=== PATIENT | female | born 1975 | race Caucasian/White ===

== ENCOUNTER 2021-05-06 06:55 | Day surgery (SDC) | payer MEDICARE, OTHER ==
[~2021-05-06] VITALS: Ht 162.6 cm; Wt 74.1 kg
[~2021-05-06 06:55] MED LIST: CARBAMAZEPINE100 MG PO; CARBATROL100 MG PO; GUMMI BEAR MUL1 EACH PO; MULTIVITAM9 MG/15 M1 PO
--- NOTE | 2021-05-06 08:19 | NUR ---
MEDICATED IN ORDER TO FACILITATE CARE OF PATIENT. AFTER 10MG ORAL VERSED AND WAITING 15 MINUTES, THE PATIENT IS STILL NOT WILLING TO HAVE BLOOD PRESSRUE TAKEN. REPEAT DOSE GIVEN PER VERBAL ORDER.
--- NOTE | 2021-05-06 08:55 | NUR ---
PT NOW TOLERATES VITAL SIGNS AND CONSENTS TO IV WITH TWO NURSE ASSIST.
--- NOTE | 2021-05-06 12:03 | NUR ---
PT AND FAMILY UPDATED ON LENGTH OF DELAY PRIOR TO STARTING PROCEDURE IN OR
--- NOTE | 2021-05-06 13:42 | NUR ---
05/06/21 1342 Libby Monzon 1332 PT ARRIVED TO PACU ON 6L VIA MASK, JAW THUST USED TO MAINTAIN AIRWAY. SECOND RN AT BEDSIDE, RADHA CELAYA. PT NONAROUSABLE.
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
== END 2021-05-06 15:30 | disposition home or self-care (01) ==
LOC: DS 06:55 → OPS 06:55
PROVIDERS: ATTEND Surgery
PROC: 0D20XUZ Change Feeding Device in Upper Intestinal Tract, External Approach (ICD-10-PCS; principal; 2021-05-06 09:40)
DX: Z43.1 Encounter for attention to gastrostomy (principal); R29.818 Other symptoms and signs involving the nervous system; S06.300S Unspecified focal traumatic brain injury without loss of consciousness, sequela; G40.909 Epilepsy, unspecified, not intractable, without status epilepticus; Z88.8 Allergy status to other drugs, medicaments and biological substances; Z20.822 Contact with and (suspected) exposure to COVID-19
CPT/HCPCS: 36415; 80053; 80061; 80156; 82306; 84439; 84443; 84703; 85025; J2001; J2250; J2704; J7121; U0003

== ENCOUNTER 2023-01-02 08:41 | Day surgery (SDC) | payer MEDICARE, OTHER ==
[~2023-01-02] VITALS: Ht 162.6 cm; Wt 79.5 kg
--- NOTE | 2023-01-02 09:37 | NUR ---
PATIENT GIVEN ORAL VERSED PER TUBE. SOME LEAKAGE OF MEDICATION AROUND TUBE. FLUSHED WITH 5 ML OF TAP WATER. 3 RNs ASSISTED WITH HOLDING EXTREMITIES DURING VERSED ADMIN. MOTHER AT BEDSIDE. CALL LIGHT WITHIN REACH OF MOTHER.
[2023-01-02 10:16] LABS: BASOPHILS 1.1 % (0-2); EOSINOPHILS 3.7 % (0-6); HEMATOCRIT 39.5 % (35.0-50.0); LYMPHOCYTES 27.8 % (24-44); MCH 29.3 (27-36); MONOCYTES 8.3 % (0-12); NEUTROPHILS 59.1 % (39-80); PLATELET COUNT 276 K/uL (140-440); RBC 4.44 M/ul (4.3-5.7)
[2023-01-02 10:34] LABS: ALBUMIN/GLOBULIN RATIO 0.45 (1.1-2.4); ANION GAP 12.5 (7-21); BILIRUBIN, TOTAL 0.1 ng/dL (0.2-1.0); BUN/CREATININE RATIO 18.64 (6.0-28.6); CALCIUM 8.1 mg/dL (8.5-10.1); CREATININE, SERUM 0.59 mg/dL (0.55-1.02); POTASSIUM 3.5 mmol/L (3.5-5.1); PROTEIN, TOTAL 6.4 g/dL (6.4-8.2)
--- NOTE | 2023-01-02 11:21 | NUR ---
01/02/23 1121 Betty Alejandre 1115: PATIENT BEGINS TO COUGH. HOB ELEVATED TO 90. PATIENT HAS SCANT AMOUNT OF DE [place] O SMELLING EMESIS. PATIENT AIRWAY IS DEEP SUCTIONED. MASK IS REMOVED AND PATIENT MAINTAINS OXYGEN SATURATION AT 98% - 100%
[2023-01-02 11:41] VITALS: BP 109/52
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
== END 2023-01-02 11:55 | disposition home or self-care (01) ==
LOC: DS 08:41
PROVIDERS: ATTEND Surgery
PROC: 0D20XUZ Change Feeding Device in Upper Intestinal Tract, External Approach (ICD-10-PCS; principal; 2023-01-02 11:00)
DX: Z43.1 Encounter for attention to gastrostomy (principal)
CPT/HCPCS: 00790; 36415; 80053; 84703; 85025; J1100; J1885; J2250; J2405; J2704; J2765; J3010; J7121

== ENCOUNTER 2023-03-17 01:01 | Emergency (ER) | payer MEDICARE, OTHER ==
[~2023-03-17] VITALS: Ht 162.6 cm; Wt 75.0 kg
[2023-03-17 01:29] LABS: BASOPHILS 0.6 % (0-2); EOSINOPHILS 0.3 % (0-6); HEMATOCRIT 40.8 % (35.0-50.0); HEMOGLOBIN 13.4 g/dL (12.0-18.0); LYMPHOCYTES 8.1 % (24-44); MCH 28.9 (27-36); MCHC 32.8 g/dl (30-36); MCV 88.4 fl (81-99); PLATELET COUNT 315 K/uL (140-440); RBC 4.62 M/ul (4.3-5.7); RDW 14.3 (10.5-15.0)
[2023-03-17 01:45] LABS: ALBUMIN 3.5 g/dL (3.4-5.0); ALBUMIN/GLOBULIN RATIO 0.9 (1.1-2.4); BILIRUBIN, TOTAL 0.2 ng/dL (0.2-1.0); BUN/CREATININE RATIO 18.88 (6.0-28.6); CALCIUM 8.3 mg/dL (8.5-10.1); CREATININE, SERUM 0.9 mg/dL (0.55-1.02); PROTEIN, TOTAL 7.4 g/dL (6.4-8.2)
[2023-03-17] MEDS ORDERED: PROTONIX40 M1 PT (01:52)
[2023-03-17 02:20] VITALS: BP 117/61
== END 2023-03-17 02:20 | disposition home or self-care (01) ==
LOC: ED 01:01
PROVIDERS: Family Medicine
DX: K92.0 Hematemesis (principal); Z93.1 Gastrostomy status; Z88.8 Allergy status to other drugs, medicaments and biological substances; Z79.899 Other long term (current) drug therapy; Z87.820 Personal history of traumatic brain injury
CPT/HCPCS: 36415; 80053; 85025; 96374; 99284-25; A9270; C9113

== ENCOUNTER 2023-07-02 09:25 | Inpatient (IN) | payer MEDICARE, OTHER ==
[~2023-07-02] VITALS: Ht 162.6 cm; Wt 70.0 kg
[~2023-07-02 09:25] MED LIST changes: +PROTONIX40 M1 PT
[2023-07-02] MEDS ORDERED: SODIUM CHLORIDE 0.9% 1,000 ML IV ONE (09:45)
[2023-07-02] MEDS ORDERED: ondansetron HCL 4 MG/2 ML VIAL IV ONE (09:45)
[2023-07-02 10:04] LABS: HEMATOCRIT 46.9 % (35.0-50.0); HEMOGLOBIN 15.7 g/dL (12.0-18.0); MCH 29.4 (27-36); MCHC 33.4 g/dl (30-36); MCV 88.1 fl (81-99); PLATELET COUNT 386 K/uL (140-440); RBC 5.33 M/ul (4.3-5.7); RDW 14.4 (10.5-15.0)
[2023-07-02 10:09] LABS: BILIRUBIN, URINE POSITIVE (negative); BLOOD/HGB, URINE TRACE-I (Negative); KETONE, URINE TRACE (Negative); LEUK ESTERASE, URINE NEGATIVE (negative); NITRITE, URINE NEGATIVE (negative); PH, URINE 5.5 (5-7)
[2023-07-02 10:21] LABS: ALBUMIN 3.8 g/dL (3.4-5.0); ALBUMIN/GLOBULIN RATIO 0.86 (1.1-2.4); ANION GAP 15.1 (7-21); BILIRUBIN, TOTAL 0.5 ng/dL (0.2-1.0); BUN/CREATININE RATIO 17.97 (6.0-28.6); CALCIUM 8.9 mg/dL (8.5-10.1); CREATININE, SERUM 0.89 mg/dL (0.55-1.02); POTASSIUM 4.1 mmol/L (3.5-5.1); PROTEIN, TOTAL 8.2 g/dL (6.4-8.2)
[2023-07-02 10:22] LABS: BACTERIA, URINE NONE SEEN /hpf (negative); CASTS, URINE NONE SEEN \\lpf; COLLECTION TYPE, URINE CATH; CRYSTALS, URINE NONE SEEN (0-1+); EPITHELIAL CELLS, URINE OCCASIONAL /lpf (0-1+); REFLEX CULTURE, URINE No (No)
[2023-07-02 10:25] LABS: BANDS, MANUAL DIFF 5; BASOPHILS, MANUAL DIFF 1; EOSINOPHILS, MANUAL DIFF 1; LYMPHOCYTES, MANUAL DIFF 6; MONOCYTES, MANUAL DIFF 8; NEUTROPHILS, MANUAL DIFF 79
[2023-07-02] MEDS ORDERED: MIDAZOLAM HCL 2 MG/2 ML VIAL IV ONE (10:45)
[2023-07-02] MEDS ORDERED: ACETAMINOPHEN 325 MG TAB PT PRN (11:45)
[2023-07-02] MEDS ORDERED: CEFTRIAXONE/SODIUM CHLORIDE 2 GM/100 ML PIGGYBACK IV ONE (11:45)
[2023-07-02] MEDS ORDERED: DEXTROSE 5% - LACTATED RINGERS 1,000 ML IV SCH (11:45)
[2023-07-02] MEDS ORDERED: HYDROmorphone HCL 1 MG/ML SYR IV PRN ×2 (11:45→17:15)
--- NOTE | 2023-07-02 12:05 | NUR ---
PT ARRIVED TO MED SURG UNIT VIA STRETCHER. HAND OFF REPORT RECEIVED FROM RADHA MUÑOZ. PT. AWAKE AND ALERT, TRANSFERED TO BED VIA DRAW SHEET, 3PA. PT. ARRIVED WITH MOTHER DEBBIE WHO IS AT BEDSIDE. MOTHER IS PT CAREGIVER. PT HAS COGNITIVE DEFECITS FROM TBI OVER 30 YEARS AGO. MOTHER ANSWERS QUESTIONS FOR PT BECAUSE PT IS NON VERBAL.
[2023-07-02 13:03] VITALS: BP 105/62
--- NOTE | 2023-07-02 13:29 | NUR ---
PT HAD AN EPISODE OF EMESIS. DR. MIXON NOTIFIED. PT CLEANED UP WITH NEW GOWN AND BEDDING.
[2023-07-02] MEDS ORDERED: ondansetron HCL 4 MG/2 ML VIAL IV PRN ×2 (13:30→17:15)
--- NOTE | 2023-07-02 13:50 | NUR ---
ADMISSION ASSESSMENT COMPLETE. PT REST IN BED. NO APPARENT DISTRESS. BED IN LOW POSTION AND BED ALARM ON.
--- NOTE | 2023-07-02 15:48 | NUR ---
PATIENT IS DOING OKAY. PATIENT IS TRYING TO SLEEP. CALL LIGHT IS WITHIN REACH.
[2023-07-02] MEDS ORDERED: CALCIUM + D SO1 EACH PO (16:19)
--- NOTE | 2023-07-02 16:19 | NUR ---
PT HAD ANOTHER EPISODE OF EMESIS. PT. GOWN AND BEDDING CHANGED, PURE WICK PLACED, REPOSITIONED, BED IN LOW POSITION AND CALL LIGHT WITHIN REACH.
[2023-07-02] MEDS ORDERED: VITAMIN D3125 MC3 PO (16:21)
[2023-07-02 17:10] VITALS: BP 136/72
--- NOTE | 2023-07-02 17:12 | NUR ---
medications reconciled
[2023-07-02] MEDS ORDERED: PANTOPRAZOLE SODIUM 40 MG/10 ML VIAL IV SCH (17:15)
[2023-07-02] MEDS ORDERED: PROCHLORPERAZINE EDISYLATE 10 MG/2 ML VIAL IV PRN (17:15)
[2023-07-02] MEDS ORDERED: HYDROCODONE/ACETA 5/325 TAB PO PRN (17:15)
[2023-07-02] MEDS ORDERED: ENOXAPARIN SODIUM 40 MG/0.4 ML SYR SUB-Q SCH (17:16)
[2023-07-02] MEDS ORDERED: ACETAMINOPHEN 500 MG TAB PT PRN (17:30)
--- NOTE | 2023-07-02 17:49 | NUR ---
PATIENT IS LAYING DOWN ENOUGH TO WHERE SHE CAN REST. PATIENT HASNT BEEN FEELING TO WELL. 1 ON 1 CARE. PATIENT IS ASLEEP. CALL LIGHT IS IN REACH
--- NOTE | 2023-07-02 18:44 | NUR ---
DR. MUNOZ NOTIFIED OF PT URINE COLOR OF [place]A. NEW ORDER RECEIVED FOR LR CONTINUOUS INFUSION.
[2023-07-02] MEDS ORDERED: LACTATED RINGER'S 1,000 ML IV SCH (19:00)
--- NOTE | 2023-07-02 19:05 | NUR ---
BEDSIDE REPORT RECEIVED FROM ANGELICA ROBERT, PT RESTING QUIETLY IN BED, EYES OPEN, NON VERBAL, IVF INFUSING PER RIGHT AC AT 150ML/HR, PURE WICK IN PLACE AND DRAINING BROWN URINE, SIDE RAILS UP X 4, BED ALARM ON, BED LOW POSITION, FALL MATS TO BOTH SIDES OF BED. CPOX IN PLACE, SATS 91-94 %.
--- NOTE | 2023-07-02 19:10 | NUR ---
REPROT RECEIVED FROM DAY RN. PATIENT RESTING IN BED. C/O SOB AND REQUESTING A BREATHING TREATMENT. RT NOTIFIED. CALL LIGHT WITHIN REACH.
--- NOTE | 2023-07-02 19:20 | NUR ---
BEDSIDE REPORT RECEIVED FROM FLASH RN, PT RESTING CALMLY AT THIS TIME, HOB ELEVATED APPROX 30 DEGREES, RESP EVEN AND REG.
[2023-07-02 19:48] VITALS: BP 119/68
--- NOTE | 2023-07-02 19:48 | NUR ---
VS AND ASSESSMENT COMPLETED, PT PULLS HANDS AWAY FROM NURSE WHEN THEY ARE TOUCHED, IV SITE PATENT, LIGHTS DIMMED, PT CLOSES EYES WHEN LEFT UNDISTURBED, RESP EVEN AND REG.
[2023-07-02] MEDS ORDERED: CEFEPIME HCL/D5W 1 GM/100 ML PIGGYBACK IV SCH (20:00)
--- NOTE | 2023-07-02 20:35 | NUR ---
PT REPOSITIONED UP IN BED, HOB REMAINS ELEVATED APPROX 25-30 DEGREES. NOTED GT IN LEFT UPPER ABDOMEN PLUGGED OFF. SITE WITHOUT REDNESS OR DRAINAGE.
--- NOTE | 2023-07-02 20:48 | NUR ---
PT AWAKE, LOOKING ABOUT, DOES NOT APPEAR UNCOMFORTABLE AT THIS TIME, ORDERED MAXIPINE STARTED AT 25ML/HR, MAINTANCE IV RATE DECREASED TO 125ML/HR, RUNNING CONCURRENTLY WITH A/B, IV SITE PATENT.
[2023-07-02 21:12] VITALS: BP 119/68
--- NOTE | 2023-07-02 21:39 | NUR ---
PT AWAKE, SMILES PERIODICALLY WHEN SPOKEN TO, PT MOVING RIGHT HAND WHERE PULSE OX IS, PT APPEARS CALM TPR DONE.
--- NOTE | 2023-07-02 22:27 | NUR ---
PT REMAINS AWAKE, LOOKING ABOUT, SMILES PERIODICALLY, OXYGEN SATS 94% HR 108 PER CPOX. RN REMAINS AT BEDSIDE.
--- NOTE | 2023-07-02 23:14 | NUR ---
PT REMAINS AWAKE, ATTENDS NOTED TO BE WET, PERICARE GIVEN, NEW PURE WICK RE- PLACED, FRESH DRAW SHEET AND CHUX UNDER PT, PT SMILES PERIODICALLY, TILTED TO LEFT SIDE, IV PATENT.
--- NOTE | 2023-07-02 23:53 | NUR ---
PT HAD SMALL GREEN EMESIS, GOWN CHANGED, HOB ELEVATED APPROX 45 DEGREES, PT MEDICATED WITH ZOFRAN 8MG IV PER ORDER, IV SITE PATENT AND FLUSHES WELL, PT RESTING WITH EYES CLOSED, RN REMAINS AT BEDSIDE. ORAL SX AVAILABLE AT BEDSIDE.
[2023-07-03] VITALS (13 sets, daily range): BP systolic 109–130; BP diastolic 55–70
--- NOTE | 2023-07-03 01:31 | NUR ---
PT AWAKE, LOOKING ABOUT, APPEARS CALM AND RELAXED, VS AND I/O DONE, IV PATENT, SITE INTACT.
--- NOTE | 2023-07-03 02:21 | NUR ---
PT AWAKE AND CALM, LOOKING ABOUT, IV A/B HUNG PER NAVEEN GARCIA, IV SITE PATENT. PT ALERT, AND SMILES PERIODICALLY.
--- NOTE | 2023-07-03 03:02 | NUR ---
THIS RN IN ROOM FOR CLOSE MONITORING. IV SITE ASSESSED, IV ANTIBIOTIC AND IVF INFUSING WNL ORDERED. pt AWAKE, RESTING IN BED, OCCASIONTALLY CLOSES EYES THEN OPENS AGAIN, LOOKS AT RN. BED ALARM ON.
--- NOTE | 2023-07-03 04:25 | NUR ---
PT AWAKE, ALERT, OCCASIONAL SMILE, PT APPEARS CALM, VS DONE, TEMP REMAINS 99.2 AX, ASSESSMENT COMPLETED, RN REMAINS AT BEDSIDE.
--- NOTE | 2023-07-03 05:00 | NUR ---
PT NOTED TO HAVE WET ATTENDS, 2 PERSON ASSIST TO COMPLETE PERINEAL CLEANSING, REPLACEMENT OF PURE WICK, URINE CONTINUES TO BE BROWN IN COLOR, PT REPOSITION UP IN BED AND TILTED TOWARD LEFT, PT REMAINS AWAKE AND ALERT, HOB ELEVEATED APPROX 30 DEGREES, NO FURTHER EMESIS, IVF INFUSING WELL, SITE INTACT.
--- NOTE | 2023-07-03 05:14 | NUR ---
LAB IN FOR AM BLOOD DRAW, RN ASSIST WITH SUPPORT TO PATIENT.
[2023-07-03 05:26] LABS: HEMATOCRIT 43.8 % (35.0-50.0); HEMOGLOBIN 14.4 g/dL (12.0-18.0); MCHC 32.9 g/dl (30-36); MCV 88.2 fl (81-99); PLATELET COUNT 358 K/uL (140-440); RBC 4.96 M/ul (4.3-5.7); RDW 14.2 (10.5-15.0)
[2023-07-03 05:43] LABS: ALBUMIN 2.6 g/dL (3.4-5.0); ALBUMIN/GLOBULIN RATIO 0.7 (1.1-2.4); ANION GAP 14.7 (7-21); BANDS, MANUAL DIFF 2; BILIRUBIN, TOTAL 0.5 ng/dL (0.2-1.0); BUN/CREATININE RATIO 14.86 (6.0-28.6); CALCIUM 8.2 mg/dL (8.5-10.1); CREATININE, SERUM 0.74 mg/dL (0.55-1.02); LYMPHOCYTES, MANUAL DIFF 9; MAGNESIUM 1.9 mg/dL (1.8-2.4); MONOCYTES, MANUAL DIFF 6; NEUTROPHILS, MANUAL DIFF 83; PHOSPHORUS, INORGANIC 2.7 mg/dL (2.5-4.9); POTASSIUM 3.7 mmol/L (3.5-5.1); PROTEIN, TOTAL 6.3 g/dL (6.4-8.2)
--- NOTE | 2023-07-03 06:00 | NUR ---
PT RESTING CALMLY, EYES OPEN, SMILES AT NURSE, APPEARS COMFORTABLE AT THIS TIME. REMAINS NPO, ATTEMPTED ORAL CARE, PT TURNING HEAD, WARM WASH CLOTH TO FACE.
--- NOTE | 2023-07-03 06:30 | NUR ---
PT ASLEEP, RESP EVEN AND REG, WITHOUT DISTRESS. IVF INFUSING WELL WITH LR AT 150ML/HR. SITE INTACT,
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
--- NOTE | 2023-07-03 06:51 | NUR ---
DR MUNOZ TO ROOM TO SEE PT, PT AWAKE, GRIMACES BRIEFLY WITH ABDOMINAL PALPATION FROM DOCTOR, BACK TO SLEEP AFTER A FEW MINUTES.
[2023-07-03] MEDS ORDERED: LACTATED RINGER'S 1,000 ML IV SCH (07:15)
--- NOTE | 2023-07-03 07:20 | NUR ---
HAND OFF REPORT RECEIVED FROM RADHA LOREDO. PT AWAKE RESTING IN BED, APPEARS TO BE COMFORTABLE. BED IN LOW POSTION AND BED ALARMS ON
--- NOTE | 2023-07-03 09:30 | NUR ---
NURSE AND I CHANGED PATIENT'S TAPED ATTEND DID SILVIA CARE. REPLACED PUREWICK.
[2023-07-03] MEDS ORDERED: iopamidoL 30 ML VIAL ONE (09:58)
[2023-07-03] MEDS ORDERED: SODIUM CHLORIDE 0.9% 40 ML IV ONE (09:59)
[2023-07-03] MEDS ORDERED: LIDOCAINE HCL 1% 30 ML SDV ONE (10:00)
--- NOTE | 2023-07-03 10:25 | NUR ---
PATIENT RESTING IN BED WITH EYES CLOSED. MOTHER, LILY, IN ROOM WITH PATIENT. STATES PATIENT LIVES AT HOME WITH BOTH HER PARENTS. DEMOGRAPHICS VERIFIED WITH MOTHER. PATIENT HAS NO DME PER MOTHER. FAMILY PROVIDES TRANSPORATION TO APPOINTMENTS WHEN NEEDED. PATIENT IS ABLE TO AMBULATE AT [facility]. MOTHER STATES THEY JUST "KEEP AN EYE ON HER, BECAUSE SHE DOES LOSE HER BALANCE." MOTHER DENIES ANY FINANCIAL HARDSHIP. SHE ALSO DENIES ANY NEEDS AT HOME AT THIS TIME. INSTRUCTED TO NOTIFY STAFF IF NEEDS ARISE. VERBALIZES UNDERSTANDING.
--- NOTE | 2023-07-03 10:30 | NUR ---
MOM AND FRIEND ARE IN ROOM. PATIENT SLEEPING.
--- NOTE | 2023-07-03 11:00 | NUR ---
PT. LEFT UNIT VIA STRETCHER WITH RADHA WILLIAMSON. TAKEN TO SURGERY.
[2023-07-03] MEDS ORDERED: SUGAMMADEX SODIUM 200 MG/2 ML ML ONE (11:32)
[2023-07-03] MEDS ORDERED: LIDOCAINE HCL 2% 5 ML SDV ONE (11:32)
[2023-07-03] MEDS ORDERED: DEXAMETHASONE SOD PHOS 4 MG/ML VIAL ONE (11:32)
[2023-07-03] MEDS ORDERED: ROCURONIUM BROMIDE 50 MG/5 ML SYR ONE ×2 (11:32→12:38)
[2023-07-03] MEDS ORDERED: SUCCINYLCHOLINE IN 0.9% NACL 200 MG/10 ML SYRINGE ONE (11:32)
[2023-07-03] MEDS ORDERED: MIDAZOLAM HCL 2 MG/2 ML VIAL ONE (11:32)
[2023-07-03] MEDS ORDERED: ondansetron HCL 4 MG/2 ML VIAL ONE (11:32)
[2023-07-03] MEDS ORDERED: ACETAMINOPHEN 1,000 MG/100 ML VIAL ONE (11:32)
[2023-07-03] MEDS ORDERED: propofoL 200 MG/20 ML VIAL ONE (11:32)
[2023-07-03] MEDS ORDERED: fentaNYL citrate 100 MCG/2 ML VIAL ONE (11:32)
[2023-07-03] MEDS ORDERED: KETOROLAC TROMETHAMINE 30 MG/ML VIAL ONE (11:33)
[2023-07-03] MEDS ORDERED: LIDOCAINE HCL 2% 20 MG/ML VIAL INJ ONE (11:33)
[2023-07-03] MEDS ORDERED: fentaNYL citrate 50 MCG/ML SDV IV PRN (12:45)
[2023-07-03] MEDS ORDERED: NALOXONE HCL 0.4 MG SYR IV PRN (12:45)
[2023-07-03] MEDS ORDERED: droPERidol 5 MG/2 ML VIAL IV PRN (12:45)
[2023-07-03] MEDS ORDERED: ondansetron HCL 4 MG/2 ML VIAL IV PRN (12:45)
[2023-07-03] MEDS ORDERED: PROCHLORPERAZINE EDISYLATE 10 MG/2 ML VIAL IV PRN (12:45)
[2023-07-03] MEDS ORDERED: IBLOOD GLUCOSE TEST STRIP 1 EA TEST VI PRN (12:45)
[2023-07-03] MEDS ORDERED: HYDROmorphone HCL 1 MG/ML SYR IV PRN (12:45)
[2023-07-03] MEDS ORDERED: LACTATED RINGER'S 1,000 ML IV ONE (13:09)
--- NOTE | 2023-07-03 14:55 | NUR ---
07/03/23 1455 Na,Libby 1445 PT ARRIVED TO PACU ON 10L VIA MASK, ORAL AIRWAY IN PLACE AND CHIN LIFT USED TO MAINTAIN AIRWAY. RESP EVEN AND UNLABORED.
--- NOTE | 2023-07-03 16:23 | NUR ---
PT RETURNS TO MED-SURG AT 1600 VIA GURNEY ESCORTED BY RADHA SORTO. BEDSIDE REPORT RECEIVED. PT ROUSABLE TO VOICE BUT DROWSY. 2L O2 IN PLACE VIA NC. CPOX IN [place], PT SATS 96%. VSS. IV INFUSING LR TO GRAVITY, CHANGED OVER TO PUMP LR AT 150 ML/HR ORDERED. IV SITE C/D/I. NO REDNESS, SWELLING OR LEAKING NOTED. INCISIONS X4 NOTED TO ABDOMEN: 3X RUQ AND 1X AT THE UMBILICUS. TAPE AND GAUZE DRESSINGS INTACT, SCAN AMOUNT OF SHADOWING NOTED. ABDOMEN MILDLY SWOLLEN. BOWEL TONES X4 HYPOACTIVE. LUNGS CLEAR AND HRR. NAIDU IN PLACE DRAINING DARK JENN URINE. SCDS IN PLACE TO BLE. MOTHER AT BEDSIDE. YESICA DOMINGUEZ IN ROOM ONE-TO-ONE CARE.
[2023-07-03] MEDS ORDERED: carBAMazepine 100 MG CHEW PO SCH (16:30)
--- NOTE | 2023-07-03 18:20 | NUR ---
PT RESTS IN GURNEY WITH EYES CLOSED, RESP EVEN AND UNLABORED. PT SATS 99% ON 2L O2 VIA NC. O2 TITRATED DOWN TO 1L.
--- NOTE | 2023-07-03 19:10 | NUR ---
REPORT RECEIVED FROM DAY SHIFT RN. PATIENT RESTING IN BED WITH EYES CLOSED. ARROUSES TO TOUCH. NO APPARENT DISTRESS NOTED. OXYGEN ON AT 1 L/MIN VIA NC. CPOX READINGS WNL. IVF INFUSING WITH NO ISSUES OR CONCERNS. IV SITE PATENT. 1:1 STAFF WITH PATIENT AT BEDSIDE. CALL LIGHT WITHIN REACH. BED ALARM ON.
--- NOTE | 2023-07-03 20:25 | NUR ---
PATIENT RESTING IN BED. ARROUSES TO TOUCH. APPEARS TO BE IN NO DISCOMFORT AT THIS TIME. IV ABX HUNG. ABD APPEARS DISTENDED. BOWEL TONES HYPOACTIVE. 4 DRESSINGS TO ABD REMAIN CDI. ICE APPLIED TO ABD. SCD'S IN PLACE AND PATIENT IS TOLLERATING WELL. VSS. 1:1 STAFF WITH PATIENT AT BEDSIDE. BED ALARM ON. CALL LIGHT WITHIN REACH.
--- NOTE | 2023-07-03 22:15 | NUR ---
PATIENT RESTING IN BED ALERT AND AWAKE. 2200 MEDS GIVEN. IVF INFUSSING WITH NO ISSUES OR CONCERNS. 1:1 STAFF AT BEDSIDE. PATIENT DOES NOT APPEAR TO BE IN ANY DISTRESS AT THIS TIME. BED ALARM ON. CALL LIGHT WITHIN REACH.
[2023-07-04] VITALS (8 sets, daily range): BP systolic 102–138; BP diastolic 50–70
--- NOTE | 2023-07-04 00:38 | NUR ---
PATIENT RESTING IN BED WTH EYES AWAKE. APPEARS TO BE WATCHING TV. 1:1 STAFF AT BEDSIDE WITH PATIENT. PATIENT DOES NOT APPEAR TO BE IN ANY DISTRESS. BED ALARM ON, CALL LIGHT WITHIN REACH.
--- NOTE | 2023-07-04 02:05 | NUR ---
PATIENT RESTING IN BED. VSS. APPEARS TO BE UNCOMFORTABLE. FACE IS FLUSHED, NOTED GRIMICING. ABD APPEARS TO BE DISTENDED. LAP SITE DRESSINGS ARE CDI. HYPOACTIVE BOWEL TONES. PATIENT REPOSITIONED IN BED. VSS. 1:1 STAFF AT BEDSIDE. CALL LIGHT WITHIN REACH. BED ALARM ON.
--- NOTE | 2023-07-04 03:58 | NUR ---
IV PUMP ALARMING, ISSUE RESOLVED AND IV FLUIDS INFUSING WNL DIRECTED ALONG WITH IV ABX. EDEL YESICA REMAINS IN ROOM WITH pt FOR CLOSE MONITORING. pt AWAKE, REMAINS NONVERBAL.
[2023-07-04 05:36] LABS: BASOPHILS 0.5 % (0-2); EOSINOPHILS 0.1 % (0-6); HEMATOCRIT 32.5 % (35.0-50.0); HEMOGLOBIN 10.8 g/dL (12.0-18.0); LYMPHOCYTES 14.9 % (24-44); MCH 29.4 (27-36); MCHC 33.2 g/dl (30-36); MCV 88.5 fl (81-99); MONOCYTES 11.1 % (0-12); NEUTROPHILS 73.4 % (39-80); PLATELET COUNT 256 K/uL (140-440); RBC 3.67 M/ul (4.3-5.7); RDW 14.2 (10.5-15.0)
--- NOTE | 2023-07-04 05:39 | NUR ---
PATIENT RESTING IN BED. AWAKE AND ALERT. PATIENT PUSHES NURSING STAFF AWAY AT FIRST WHEN ATTEMPTING TO PROVIDE CARE. ABLE TO OBTAIN VITALS, LISTEN TO BOWEL TONES AND ASSESS ABDOMEN. IVF RUNNING, IV SITE PATENT. 1:1 STAFF WITH PATIENT. CALL LIGHT WITHIN REACH. BED ALARM ON.
[2023-07-04 05:51] LABS: ALBUMIN/GLOBULIN RATIO 0.61 (1.1-2.4); ANION GAP 9.6 (7-21); BILIRUBIN, TOTAL 0.4 ng/dL (0.2-1.0); BUN/CREATININE RATIO 18.03 (6.0-28.6); CALCIUM 7.5 mg/dL (8.5-10.1); CREATININE, SERUM 0.61 mg/dL (0.55-1.02); MAGNESIUM 1.8 mg/dL (1.8-2.4); PHOSPHORUS, INORGANIC 1.9 mg/dL (2.5-4.9); POTASSIUM 3.6 mmol/L (3.5-5.1); PROTEIN, TOTAL 5.3 g/dL (6.4-8.2)
--- NOTE | 2023-07-04 06:54 | OR ---
[facility] [address], [place] [address] Signed DATE OF OPERATION: 07/03/2023 SURGEON: Rodríguez Munoz MD PREOPERATIVE DIAGNOSIS: Severe acute cholecystitis. POSTOPERATIVE DIAGNOSIS: Severe acute cholecystitis and cholelithiasis x3. PROCEDURE: Laparoscopic cholecystectomy without intraoperative cholangiogram (prolonged and difficult at 2 hours and two RNs). ESTIMATED BLOOD LOSS: 25 mL. FINDINGS: Flynn is nonverbal and presented with vomiting, therefore she came with rather advanced cholecystitis. She had tremendously thickened, inflamed gallbladder adherent to the abdominal wall with multiple filmy adhesions up over the dome of the liver. She also had fluid within the tissues throughout the abdomen, which explains her low urine output and her dark urine. Her gallbladder was several inches up above the costal margin making it more difficult as well. The gallbladder was quite long and attached to the liver throughout its length. The triangle of Calot was also quite inflamed as well. All the dissection was extremely difficult. We had a second nurse scrub in to help hold the fan retractor in the gallbladder. It ended up taking 2 hours to do our surgery, that is well passed an hour for most gallbladders. In this way, her procedure was prolonged and difficult. INDICATIONS: Flynn is a 48-year-old female, who suffered a traumatic brain injury at age 17. She has required surgery to drain the blood from around her brain and up with a MEDICAL INSURANCE CODER shunt and a gastrostomy tube. The gastrostomy tube did come loose and she did have a midline laparotomy and repair of the stomach and replaced the gastrostomy tube. 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 She also had a tracheostomy. She now lives in our [facility] the [facility] with her family including her mother, Brandy. Her mother noticed that Flynn did not seem to be feeling well and she was vomiting. She was weak and not able to stand and ambulate very well. She therefore brought her on private vehicle up to our hospital and brought her into the emergency Electronically Signed By: RODRÍGUEZ MUNOZ MD 07/04/23 0654 PATIENT NAME: FLYNN GALVAN OPERATIVE REPORT DATE OF : 77 REPORT #: [id number] PHYSICIAN: RODRÍGUEZ MUNOZ MD PCP: NELLY US DO REPORT IS CONFIDENTIAL AND NOT TO BE RELEASED WITHOUT AUTHORIZATION [facility] [address], [place] [address] Signed room with the help of a wheelchair. In the emergency room, she seemed to be tender in [place] [id number]. Liver function tests were fine except ALT was a little up at 147. Her beta-HCG was negative. Her urine was quite dark with an elevated specific gravity. She was jumping over a 1000 glucose in her urine. The CT scan showed the moderately distended and thickened gallbladder without any obvious stones. There was pericholecystic fluid. The common bile duct was unremarkable. Incidentally, she has a 1.5 cm left adrenal nodule that will need a followup CT and/or MRI. I was asked as a general surgeon to admit her. She was given Rocephin and Flagyl along with some Dilaudid and IV fluids. I met with Flynn last evening. Her mouth was quite dry and it is clear she needed some resuscitation. I then was called to the ER for airway issue as well as a bleeding issue. I had called Flynn's mother, Brandy, and we discussed this at length. This morning, I gave her an additional bolus of fluid as the urine was still dark, but her urine output had picked up. She was tender in the right upper quadrant. [place] white count was [address]. We changed out the Rocephin over the cefepime along with the Flagyl. I reviewed with her mother the location and function of the gallbladder. We discussed laparoscopic versus open cholecystectomy. We reviewed the risk including, but not limited to bleeding, infection, scarring, change in contour the skin damage to bowel damage to main bile duct, incisional hernias and other unforeseen comorbidities. We discussed her expected intra postop course. Knowing that she is nonverbal and that she is quite sick, we expect her to be in the hospital probably a few days actually with IV antibiotics. In addition, because of her traumatic main brain injury, Flynn will pull with anything she can reach in including her pulse ox and so forth. We felt it would be challenging to leave a drain in Flynn, and therefore we entertained the idea that she might need an open cholecystectomy. Her mother was in agreement. Her mother had expressed understanding and wished to proceed. DESCRIPTION OF PROCEDURE: Flynn was taken into our operating room and placed in the supine position under general endotracheal tube anesthesia. She was on preoperative antibiotics along with subcutaneous Lovenox. SCDs were in place. We removed the wick urine catheter and placed a standard Samuel catheter without difficulty. Again she had clear but gladys colored urine. She was then prepped and draped in the usual sterile fashion. We found that she is somewhat tall, she has a long rib cage and a high umbilicus. We went ahead and went below the umbilicus, previous midline incision and placed our Delvin trocar under direct visualization very carefully. We insufflated the abdomen. We found that her transverse colon is adherent to the anterior abdominal wall on the left side, but on the right is not. We did not specifically look for her MEDICAL INSURANCE CODER shunt. We found that she has tremendous amount of fluid in the tissues throughout the abdomen and up over the liver. She had some adhesions over the dome of the liver as well as from the gallbladder up to the anterior abdominal wall. We placed our two right subcostal trocar site in the subxiphoid trocar site under direct visualization. We carefully and bluntly took down Electronically Signed By: RODRÍGUEZ MUNOZ MD 07/04/23 0654 PATIENT NAME: FLYNN GALVAN OPERATIVE REPORT DATE OF : 77 REPORT #: [id number] PHYSICIAN: RODRÍGUEZ MUNOZ MD PCP: NELLY US DO REPORT IS CONFIDENTIAL AND NOT TO BE RELEASED WITHOUT AUTHORIZATION [facility] [address], [place] [address] Signed the adhesions. We had to suction out the gallbladder through the top and thankfully the bile was mostly dark green. I gave us some flexibility of the gallbladder. It was so long we could not quite elevate the gallbladder up and over the liver. We had a second nurse scrub and we inserted our fan retractor through the midline with an additional trocar. We were able to push the transverse mesocolon down out away, so we could access the neck of the gallbladder in the triangle of Calot. We used very slow meticulous dissection until we located her into and we located the neck of the gallbladder coming down to the cystic duct. We dissected about a centimeter that length free, but there were so much inflammatory changes in the triangle of Calot, we decided not to dissect down further. For this reason, we abandoned her intraoperative cholangiogram. We went ahead and carefully divided the cystic duct with our scissors. We placed our PDS Endoloop over that to secure the cystic duct stump. We put two clips across the cystic duct stump to jerrica its location. We carefully found the cystic artery and put several clips on the cystic artery followed up onto the gallbladder. We very carefully and slowly elevated the gallbladder with the help of our ball-tip cautery. It took a tremendous amount of time to get through the plane between the gallbladder and the liver. We had to keep our second nurse scrub in for the entire case. Eventually, the entire gallbladder was free. The whole thing was quite impressive. The gallbladder was then placed into an EndoCatch bag. We irrigated and suctioned out the gallbladder in the right upper quadrant until clear. We decided not to place a subhepatic drain because we felt very secure about a divot on the cystic duct. We know Flynn will pull everything secondary to her traumatic brain injury. We went ahead and closed the subxiphoid in the midcalf mid epigastric trocar sites with our laparoscopic suturing device using oh Vicryl suture. After this, all the gas was allowed to escape and the gallbladder was removed through the infraumbilical trocar site. The gallbladder was passed off the table to our circulating nurse for photodocumentation. It was extremely long, extremely inflamed and thickened and we found three small yellow cholesterol stones about 3-4 mm in diameter. We closed the fascia at the infraumbilical trocar site along with the perineum using interrupted [id number] 0-Vicryl sutures. Local anesthetic was injected into all trocar sites. Each trocar site was irrigated and suctioned out until clear. We closed the skin and dermis of each trocar site with interrupted 3-0 subcuticular Monocryl sutures. Dry gauze and tape were applied to all incisions. We left the Samuel catheter in place. Flynn was awakened from anesthesia, extubated in the OR, and taken to recovery room in stable condition. Rodríguez Munoz MD ALB/MODL Electronically Signed By: RODRÍGUEZ MUNOZ MD 07/04/23 0654 PATIENT NAME: FLYNN GALVAN OPERATIVE REPORT DATE OF : 77 REPORT #: [id number] PHYSICIAN: RODRÍGUEZ MUNOZ MD PCP: NELLY US DO REPORT IS CONFIDENTIAL AND NOT TO BE RELEASED WITHOUT AUTHORIZATION [address] [address] Signed /[id number] cc: Nelly Us DO Patient Chart Rodríguez Munoz MD Copies: NELLY US ANDREW L MD ~ Electronically Signed By: RODRÍGUEZ MUNOZ MD 07/04/23 0654 PATIENT NAME: FLYNN GALVAN OPERATIVE REPORT DATE OF : 77 REPORT #: [id number] PHYSICIAN: RODRÍGUEZ MUNOZ MD PCP: NELLY US DO REPORT IS CONFIDENTIAL AND NOT TO BE RELEASED WITHOUT AUTHORIZATION
--- NOTE | 2023-07-04 06:58 | NUR ---
Pt report received from RADHA Rinaldi. Pt is awake, non-verbal, supine in bed with sitter. White board updated. Fluids running. Side rails up x4.
[2023-07-04] MEDS ORDERED: SODIUM PHOSPHATE 30 MMOL in DEXTROSE 5% 250 ML IV ONE (07:00)
[2023-07-04] MEDS ORDERED: carBAMazepine 100 MG CHEW PO SCH (07:00)
[2023-07-04] MEDS ORDERED: MAGNESIUM SULFATE 2 GM/50 ML BAG IV ONE (07:00)
[2023-07-04] MEDS ORDERED: DEXTROSE 5% - LACTATED RINGERS 1,000 ML IV SCH (07:00)
--- NOTE | 2023-07-04 07:29 | NUR ---
WHEN I CAME IN THE ROOM THE NIGHT NURSES WHERE GIVING A REPORT TO THE DAY NURSE. YESICA HOLLINGSWORTH WHEN IN THE ROOM SHE GAVE ME AN UPDATE ON PATIENT.
--- NOTE | 2023-07-04 10:08 | NUR ---
In with pt for IV Pump alarm (Distal occlusion). Straightened pt's arm out as well as the IV tubing which cleared the alarm. Pt's cheeks are flushed but she does not have a temperature. When asked if she is "itchy", pt shrugged her shoulders. Advised Dr. Alcazar about her flushed cheeks and no fever, BP WNL, and he advised to continue monitoring the pt. Currently 500mg flagyl is running through the IV, IV site is patent but leaks occasionally. No blood return but flushes well.
--- NOTE | 2023-07-04 12:05 | NUR ---
In with pt. Attempt to encourage her to allow us to help her to sit at the edge of the bed to dangle her legs. When we attempted to help her sit up by placing our hands on her back and arms, she pushed our arms away. Pt is non-verbal and only smiles in response to questions. Dressings from her lap sites were removed at this time. Wounds have well approximated edges, small amount of drainage noted on gauze dressings. Wounds are not oozing at this time. Abdomen is still mildly distended. Hypoactive bowel tones. Sitter in room with pt.
--- NOTE | 2023-07-04 13:15 | NUR ---
REPORT RECEIVED FROM RADHA PAREKH. IV PUMP ALARMING, RESOLVED. IV INFUSING WNL. PT SITTING UP IN BED SEMI-FOWLERS. PT MOVING ARMS AROUND AND LOOKING. YESICA DOMINGUEZ IN ROOM WITH PT. NO NEEDS IDENTIFIED AT THIS TIME. SEIZURE PADS IN PLACE. SIDE RAILS UP X4 FOR SAFTEY. YESICA DOMINGUEZ 1:1 WITH PT.
--- NOTE | 2023-07-04 14:34 | NUR ---
UR NOTE 07/04/23 OBSERVATION ORDER 07/02/23 1135 INPATIENT ORDER 07/04/23 0811 EXPECTED LOS >2 MIDNIGHTS PRIMARY INSURANCE: MEDICARE
--- NOTE | 2023-07-04 14:59 | NUR ---
IN TO ROUND ON PT. PT LAYING IN BED SEMI-FOWLERS. THIS RN INTRODUCES SELF TO PT. PT SMILES. YESICA DOMINGUEZ IN ROOM WITH PT. ASSESSMENT COMPLETE. LUNG SOUNDS CLEAR. BOWEL TONES HYPOACTIVE. INCISION SITES C/D/I, EDGES WELL APPROXIMATED, NOT WARM TO TOUCH. IV INFUSING WNL. NO OTHER NEEDS IDENTIFIED AT THIS TIME. CALL LIGHT IN REACH. SEIZURE PADS IN PLACE. YESICA DOMINGUEZ REMAINS IN ROOM 1:1.
[2023-07-04] MEDS ORDERED: CEFEPIME HCL/D5W 1 GM/100 ML PIGGYBACK IV SCH (16:00)
--- NOTE | 2023-07-04 16:30 | NUR ---
THIS RN TALKED TO PHARMACY RAGARDING PTs CEFEPIME TIME BEING OFF DUE TO PTs IV MEDICATIONS THAT WERE ADDED THIS MORNING. PER OLIVERIO, PHARMACY "PUT THE SODIUM PHOSPHATE ON STANDBY AND I WILL RETIME THE CEFEPIME AND WE CAN RUN THIS BAG OF CEFEPIME OVER 30 MINUTES. THEN YOU CAN RESUME THE SODIUM PHOSPHATE." VERIFIED WITH READBACK.
--- NOTE | 2023-07-04 16:35 | NUR ---
IN TO PUT SODIUM PHOSPHATE ON STANDBY. IV FLUSHED WITH NS AND FLUSHES WNL. 1637 CEFEPIME STARTED OVER 30 MINUTES, SEE MAY. PT SITTING UP IN BED AND SMILES WHEN THIS RN TALKS TO PT. TEGRETOL ADMINISTERED AND PT CHEWS TABLETS WITH NO ISSUES. YESICA DOMINGUEZ IN ROOM NURSE INSTRUCTOR. NO OTHER NEEDS IDENTIFIED. BED ALARM ON. CALL LIGHT IN REACH. SEIZURE PADS IN PLACE. SIDE RAILS UP X4 FOR SAFTEY. YESICA DOMINGUEZ REMAINS IN ROOM.
--- NOTE | 2023-07-04 17:25 | NUR ---
IN WITH YOMI Resendiz RN. YESICA DOMINGUEZ IN ROOM WITH PT. NEW IV START IN PTs LEFT FOREARM BY YOMI Resendiz RN. PT TOLERATES WELL. YESICA DOMINGUEZ REMAINS IN ROOM WITH PT. CALL LIGHT IN REACH. BED ALARM ON. SIDE RAILS UP X4 FOR SAFTEY. SEIZURE MATS IN PLACE.
--- NOTE | 2023-07-04 18:46 | NUR ---
EMILY HELPED ME DO CATH CARE AND SILVIA CARE ON PATIENT. DID ORAL CARE AND PUT CHAPSTICK ON HER LIPS. PATIENT IS LAYING DOWN AND WATCHING TV.
--- NOTE | 2023-07-04 19:10 | NUR ---
pt RESTING IN THE BED WITH EYES CLOSED. BOARD UPDATED. CALL LIGHT WITHIN REACH.
--- NOTE | 2023-07-04 21:30 | NUR ---
ASSESSMENT AND VITAL SIGNS DONE. pt RESTING IN THE BED. SCHEDULED MEDICATIONS ADMINISTERED, SEE MAR. IV ABX INFUSING PER ORDER. LAP SITE X5 CDI. NAIDU EMPTIED. IV X2 ASSESSED, WNL. pt REPOSITIONED. CALL LIGHT WITHIN REACH. pt MOVES HEAD AROUND TO MUCH TO HAVE MOUTH SWABBED.
[2023-07-05] VITALS (9 sets, daily range): BP systolic 114–136; BP diastolic 56–73
--- NOTE | 2023-07-05 00:05 | NUR ---
pt RESTING IN THE BED. CALL LIGHT WITHIN REACH. RR EVEN AND UNLABORED.
--- NOTE | 2023-07-05 01:15 | NUR ---
IN ALARMING. DISTAL AIR. IV FIXED. CALL LIGHT WITHIN REACH. RR EVEN AND UNLABORED. NAIDU CHECKED AND WNL.
--- NOTE | 2023-07-05 04:51 | NUR ---
IV ABX INFUSING PER ORDER, SEE MAR. pt RESTING IN THE BED. CALL LIGHT WITHIN REACH.
[2023-07-05 05:45] LABS: BASOPHILS 0.6 % (0-2); EOSINOPHILS 0.8 % (0-6); HEMATOCRIT 33.8 % (35.0-50.0); HEMOGLOBIN 11.1 g/dL (12.0-18.0); LYMPHOCYTES 24.5 % (24-44); MCH 29.2 (27-36); MCV 88.7 fl (81-99); MONOCYTES 9.8 % (0-12); NEUTROPHILS 64.3 % (39-80); PLATELET COUNT 258 K/uL (140-440); RBC 3.81 M/ul (4.3-5.7); RDW 14.1 (10.5-15.0)
--- NOTE | 2023-07-05 05:46 | NUR ---
VENDOR REPRESENTATIVES IN ROOM FOR 1:1. VENDOR REPRESENTATIVES TOOK VITALS AND RECORDED OUTPUT. VENDOR REPRESENTATIVES REMAINED IN ROOM FOR PT 1:1.
[2023-07-05 06:00] LABS: ALBUMIN 1.9 g/dL (3.4-5.0); ALBUMIN/GLOBULIN RATIO 0.53 (1.1-2.4); ANION GAP 9.3 (7-21); BILIRUBIN, TOTAL 0.2 ng/dL (0.2-1.0); BUN/CREATININE RATIO 9.43 (6.0-28.6); CALCIUM 7.4 mg/dL (8.5-10.1); CREATININE, SERUM 0.53 mg/dL (0.55-1.02); MAGNESIUM 1.9 mg/dL (1.8-2.4); PHOSPHORUS, INORGANIC 2.6 mg/dL (2.5-4.9); POTASSIUM 3.3 mmol/L (3.5-5.1); PROTEIN, TOTAL 5.5 g/dL (6.4-8.2)
[2023-07-05] MEDS ORDERED: MAGNESIUM SULFATE 2 GM/50 ML BAG IV ONE (06:30)
[2023-07-05] MEDS ORDERED: POTASSIUM PHOSPHATE 30 MMOL in DEXTROSE 5% 500 ML IV ONE (07:30)
--- NOTE | 2023-07-05 07:40 | NUR ---
REPORT RECEIVED FROM RADHA TORRES. PT LAYING IN BED SEMI-FOWLERS. PT SMILES WHEN THIS RN AND SN CYNTHIA INTRODUCE SELF. LAP SITES X5 NOTED TO BE OPEN TO AIR. NO DRAINAGE NOTED. EDGES WELL APPROXIMATED. IV FLUID RATE CHANGED PER ORDERS FROM 150ML/HR TO 100ML/HR. NO OTHER NEEDS FROM THIS RN AT THIS TIME. YESICA RAYO IN ROOM WITH PT. BED ALARM ON.
--- NOTE | 2023-07-05 07:53 | NUR ---
RECEIVED REPORT WITH RADHA RANDOLPH FROM RADHA TORRES. PT NOTED AWAKE IN BED, SMILES TO VERBALIZATION. LOGISTICS VICE PRESIDENT AT BEDSIDE. NO NEEDS IDENTIFIED, CALL LIGHT IN REACH.
--- NOTE | 2023-07-05 08:08 | NUR ---
DID ORAL CARE ON PT. SHE LET ME BRUSH HER TEETH. PT LET ME WIPE HER FACE WITH A WARM WASH CLOTH. I ALSO PUT CHAPSTICK ON HER LIPS. PT LET ME COMB HER HAIR.
--- NOTE | 2023-07-05 08:56 | NUR ---
IN WITH AGUSTÍN GARCIA TO ADMINISTER MEDICATIONS AND INITIAL ASSESSMENT. PT SUPINE IN BED WITH COMMUNICATION MANAGER BY THE BEDSIDE. MEDICATIONS ADMINISTERED PER MAR, ASSESSMENT COMPLETE. DRESSING CHANGED TO IV SITE AT RIGHT AC D/T LEAK. LUNG SOUNDS CLEAR, PT NOTED TO HAVE NON-PRODUCTIVE COUGH. HEART TONES HEARD. BOWEL TONES HYPOACTIVE, ABDOMEN TENDER TO PALPATION EVIDENCED BY PT GRIMACING. FIVE LAP SITES, NO ERYTHEMA OR DRAINAGE, SOME BRUISING TO MIDLINE. PULSES FELT IN ALL EXTREMETIES, BRUISING NOTED TO LEFT RIDDLE AND LEFT IV SITE. CALL LIGHT IN REACH, COMMUNICATION MANAGER AT BEDSIDE, NO NEEDS IDENTIFIED.
--- NOTE | 2023-07-05 09:16 | NUR ---
IN WITH SN CYNTHIA TO ADMINISTER MEDICATIONS, SEE MAR. PT LAYING IN BED AND SMILES WHEN THIS RN AND SN CYNTHIA SAY HI TO PT. ASSESSMENT COMPLETE. LUNG SOUNDS CLEAR. BOWEL TONES HYPOACTIVE. LAP SITES X5 OPEN TO AIR. SLIGHT REDNESS AROUND EDGES, NOT WARM TO TOUCH. EDGES WELL APPROXIMATED. ABD SOFT. PT NOTED TO MAKE GRIMACE WHEN THIS RN PALPATES PTs ABD. BRUISING NOTED TO MID LAP SITE. BRUISING NOTED TO LEFT RIDDLE. SCAR NOTED TO PTs TRACHEA. BRUISE NOTED TO PTs LEFT FOREARM BY IV SITE. PT BOOSTED IN BED AND READJUSTED. BED ALARM ON. CALL LGT IN REACH. YESICA RAYO REMAINS IN ROOM 1:1. NO OTHER NEEDS IDENTIFIED.
--- NOTE | 2023-07-05 10:00 | NUR ---
IN TO ADMINISTER PT MEDICATION PER MAR. PT UP IN RECLINER, LEAD ATG DEVELOPER IN ROOM. CALL LIGHT IN REACH, NO NEEDS NOTED.
--- NOTE | 2023-07-05 10:13 | NUR ---
PT WORKED WITH PATIENT TO GET TO BED, WHILE I CHAGED HER LINENS. GAVE PATIENT A BALL AND SHE WAS THROWING IT WITH HER RIGHT HAND. WITH HER LEFT ONE SHE WAS ABLE TO GRAB THE BALL. I WELL COMB PATIENTS HAIR AGAIN NOW SINCE SHE IS SITTING UP.
--- NOTE | 2023-07-05 10:38 | NUR ---
IN SECOND BAG OF FLAGYL COMPLETE. IV FLUIDS RESUMED AND IV ABX STARTED, SEE MAR. PT SITTING UP IN RECLINER. YESICA RAYO IN ROOM 1:1 WITH PT. NO OTHER NEEDS IDENTIFIED AT THIS TIME.
--- NOTE | 2023-07-05 12:29 | NUR ---
IN TO ROUND ON PT. PT SITTING UP IN RECLINER. PTs MOTHER IN ROOM. IVs INFUSING WNL. NO NEEDS IDENTIFIED. MOTHER DENIES ANY NEEDS. CALL LIGHT IN REACH. PT IN VIEW OF NURSES STATION.
--- NOTE | 2023-07-05 12:29 | NUR ---
IN TO ROUND ON PT. PT IN RECLINER WITH MOTHER PRESENT. PT APPEARS COMFORTABLE, MOTHER STATES NO COMPLAINTS OR NEEDS AT THIS TIME. CALL BABAK ZHONG.
--- NOTE | 2023-07-05 14:00 | NUR ---
IN TO ROUND ON PT. PT SITTING UP IN RECLINER. IVs INFUSING WNL. PTs MOM IN ROOM. PTs MOM UPDATED ON POC. PTs MOM DENIES ANY OTHER NEEDS AT THIS TIME. CALL LIGHT IN REACH. CHAIR ALARM ON. PT IN VIEW OF NURSES STATION. NO OTHER NEEDS IDENTIFIED.
--- NOTE | 2023-07-05 15:06 | NUR ---
IN TO ROUND ON PT AND RE-ASSESS. PT UP IN RECLINER WITH CHAIR ALARM IN PLACE. LUNG SOUNDS CLEAR, HEART TONES HEARD. PT ABDOMEN MILDLY DISTENDED, TONES STILL HYPOACTIVE. PT GRIMACES WHEN PALPATED. LAP SITES CLEAN AND DRY, NO REDNESS, HEAT, OR SWELLING. PT TAKES CHEWABLE MEDICATION PER MAR AND WITHOUT INCIDENT. CALL LIGHT IN REACH, NO OTHER NEEDS IDENTIFIED.
--- NOTE | 2023-07-05 15:08 | NUR ---
IN WITH SN CYNTHIA TO ADMINISTER MEDICATION, SEE MAR. PT SITTING UP IN RECLINER. PT SMILES WHEN ADDRESSED. IVs INFUSING WNL. PT TAKES CHEWABLE TABLES ONE AT A TIME AND CHEWS TABLETS WITH NO ISSUES. ASSESSMENT COMPLETE. LUNG SOUNDS CLEAR. BOWEL TONES HYPOACTIVE. PT NOTED TO GRIMACE WHEN THIS RN PALPATES ABD. 5 LAP SITES REMAIN OPEN TO AIR, NOT WARM TO TOUCH. EDGES WELL APPROXIMATED. NO OTHER NEEDS IDENTIFIED AT THIS TIME. PT REMAINS IN RECLINER. CHAIR ALARM ON. CALL LIGHT IN REACH. FALL MATS IN PLACE. PT IN VIEW OF NURSES STATION.
--- NOTE | 2023-07-05 16:10 | NUR ---
IN WITH SN CYNTHIA. IV PUMP ALARMING, RESOLVED. IV DRESSING ON RIGHT AC CHANGED. PT SITTING UP IN RECLINER AND SMILES WHEN ADDRESSED. NO OTHER NEEDS IDENTIFIED AT THIS TIME. CALL LIGHT IN REACH. CHAIR ALARM ON. FALL MAT IN PLACE. PT IN VIEW OF NURSES STATION.
--- NOTE | 2023-07-05 17:56 | NUR ---
IN WITH IMPLEMENTATION PROJECT MANAGER GIRMA TO ASSIST PT FROM RECLINER TO BED. PT ACCEPTS ASSISTANCE IN LEANING FORWARD IN CHAIR AND STANDS WITHOUT WEIGHT BEARING ASSISTANCE. ASKED PT TO SIT ON BED, PT AMBULATES TO BED AND SITS DOWN. PT TUCKED INTO BED, BED ALARM ON, FALL MATS IN PLACE, BED IN LOWEST POSITION, CALL LIGHT IN REACH, NO OTHER NEEDS IDENTIFIED AT THIS TIME.
--- NOTE | 2023-07-05 19:10 | NUR ---
REPORT RECEIVED FROM AGUSTÍN GACRIA. pt RESTING IN THE BED. LAP SITES X5 CDI. BOARD UPDATED. CALL LIGHT WITHIN REACH.
--- NOTE | 2023-07-05 20:50 | NUR ---
ASSESSMENT AND VITAL SIGNS DONE. LAP SITES X5 CDI. IVF INFUSING PER ORDER, SEE MAR. IV ASSESSED, RAC WML. LEFT FOREARM IV FLUSHES BUT IS SLUGGISH AND HAS BRUISING WITH AN OUTLINE FROM DAYSHIFT OTHERWISE, WNL. BED ALARM ON. CALL LIGHT WITHIN REACH.
--- NOTE | 2023-07-05 23:22 | NUR ---
OFFICE PROFESSIONAL AND RN WENT TO ROOM TO REPOSITION PT. PT BOOSTED IN BED AND CALL LIGHT PLACED WITHIN REACH.
--- NOTE | 2023-07-05 23:47 | NUR ---
pt REPOSITIONED. pt RESTING WITH EYES CLOSED. RR EVEN AND UNLABORED. CALL LIGHT WITHIN REACH.
[2023-07-06] VITALS (7 sets, daily range): BP systolic 111–134; BP diastolic 68–80
--- NOTE | 2023-07-06 02:14 | NUR ---
pt RESTING IN THE BED WITH EYES CLOSED. RR EVEN AND UNLABORED. CALL LIGHT WITHIN REACH.
--- NOTE | 2023-07-06 04:24 | NUR ---
pt RESTING IN THE BED. pt SATTING AT 96% ON RA. IV ABX INFUSING PER ORDER, SEE MAR. CALL LIGHT WITHIN REACH. ORAL CARE DONE.
--- NOTE | 2023-07-06 05:40 | NUR ---
PARKING LOT ATTENDANT ENTERED ROOM. VITALS TAKEN AND NAIDU CATH BAG EMPTIED. CALL LIGHT PLACED WITHIN REACH.
--- NOTE | 2023-07-06 06:30 | NUR ---
ASSESSMENT AND VITAL SIGNS DONE. DR. MUNOZ IN TO SEE pt. DISCUSSED WITH ABOUT FLUSHING pt's G TUBE. DR. MUNOZ TO HOLD OFF ON FLUSHING THE TUBE FOR NOW.
--- NOTE | 2023-07-06 07:00 | NUR ---
REPORT RECEIVED FROM RADHA TORRES. PT RESTING IN BED SEMI-FOLWERS. EYES CLOSED, RR EVEN AND UNLBAORED. IV INFUSING WNL. O2 SATS AT 93%. NO NEEDS IDENTIFIED AT THIS TIME. CALL LIGHT IN REACH. BED ALARM ON. FALL MATS IN PLACE. SIDE RAILS UP X4 FOR SAFTEY.
--- NOTE | 2023-07-06 07:10 | NUR ---
REPORT RECEIVED WITH RADHA RANDOLPH FROM RADHA TORRES. PT RESTING IN BED SUPINE WITH EYES CLOSED, BREATHING EVEN AND UNLABORED. FALL MATS ON GROUND. CALL LIGHT IN REACH.
--- NOTE | 2023-07-06 08:08 | NUR ---
IN IV PUMP ALARMING, IV ABX COMPLETE. IV FLUIDS INFUSING WNL. NO OTHER NEEDS IDENTIFIED AT THIS TIME. PT SMILES WHEN ADDRESSED. NO NEEDS IDENTIFIED AT THIS TIME. CALL LIGHT IN REACH. BED ALARM ON. SIDE RAILS UP X4 FOR SAFTEY.
--- NOTE | 2023-07-06 09:51 | NUR ---
IN WITH RADHA RANDOLPH TO ADMINISTER MORNING MEDICATIONS PER MAR AND PERFORM INTIAL ASSESSMENT. PT IN BED SEMI-STALEY, RESPONDS TO GREETING WITH A SMILE. ASSESSMENT COMPLETE. LUNG SOUNDS CLEAR, HEART TONES HEARD. ABDOMEN SLIGHTLY DISTENDED, SOFT, APPEARS TENDER TO PALPATION PT GRIMACES AND PUSHES THIS SNs HANDS AWAY. FIVE LAP SITES VISIBLE, OPEN TO AIR WITH NO DRAINAGE. LOWEST MIDLINE INCISION WITH MILD REDNESS, NO HEAT OR SWELLING. ABDOMINAL SOUNDS HEARD IN ALL FOUR QUADRANTS. PT IV IN RIGHT AC FLUSHES WNL, IV IN LEFT FOREARM HAS INCREASED BRUISING. PT APPEARED IN PAIN WHEN ATTEMPTING TO FLUSH, LEFT IV REMOVED, CATHETER INTACT. PT HAS MILD, NON-PITTING GENERALIZED EDEMA BLE, PULSES FELT EQUALLY. PT APPEARS RELAXED IN BED WATCHING TV, FALL MATS IN PLACE, CALL LIGHT IN REACH.
--- NOTE | 2023-07-06 10:15 | NUR ---
ASSESSMENT COMPLETE. CYNTHIA, SN AND YESICA ADEN IN ROOM REPOSITIONING PT. LUNG SOUNDS CLEAR. BOWEL TONES HYPOACTIVE. ABD FIRM IN UPPER QUADRANTS. ABD SOFT IN LOWER QUADRANTS. ABD DISTENTION NOTED. 5 LAP SITES OPEN TO AIR. MIDLINE LOWER LAP SITE NOTED TO HAVE ERYTHEMA, NOT WARM TO TOUCH. EDGES WELL APPROXIMATED. EDEMA NOTED TO BILATERAL FEET. FLACC SCORE OF 4 NOTED, PRN PAIN MEDICATION ADMINISTERED, SEE MAR. NO OTHER NEEDS IDENTIFIED AT THIS TIME. CALL LIGHT IN REACH. BED ALARM ON. SIDE RAILS UP X4 FOR SAFTEY, FALL MATS IN PLACE. PT IN VIEW OF NURSES STATION.
--- NOTE | 2023-07-06 10:30 | NUR ---
WENT TO PATIENT'S ROOM TO DISCUSS THE FAMILIES DISCHARGE NEEDS FOR WHEN THE PATIENT IS MEDICALLY STABLE TO GO HOME. PATIENT IS NON-VERBAL AND UNABLE TO DISCUSS THE DC PLAN. PER FINAL INSPECTION SUPERVISOR'S NOTES THE PATIENT'S MOTHER PLANS TO TAKE THE PATIENT HOME WHERE SHE LIVES WITH PATIENT'S MOTHER DEBBIE. FINAL INSPECTION SUPERVISOR WILL RETURN TO TALK TO PATIENT'S MOTHER LATER TODAY.
--- NOTE | 2023-07-06 11:39 | PATH ---
[facility] [address], [place] [address] Signed SPECIMEN(S): A GALLBLADDER SPECIMEN SOURCE: A. GALLBLADDER CLINICAL HISTORY: Cholecystitis FINAL PATHOLOGIC DIAGNOSIS: Gallbladder, cholecystectomy: - Acute and chronic necrotizing calculous cholecystitis BRP MICROSCOPIC EXAMINATION: Histologic sections of all submitted blocks are examined by light microscopy. These findings, together with the gross examination, support the pathologic diagnosis. GROSS DESCRIPTION: The specimen, labeled and designated "anne-marie Galvan," is received in formalin and consists of Specimen: Previously opened gallbladder. Dimensions: 8.5 x 5.0 x 2.8 cm. Serosa: Grullon-perdomo to violaceous and roughened. Cystic Duct: Unobstructed, margin inked black in shave. Calculi: Two yellow-perdomo bosselated calculi (0.4-0.6 cm in greatest dimension). Mucosa: Red-brown and attenuated/trabeculated. Wall thickness: 0.3-0.8 cm. Lymph node: No pericystic lymph nodes are grossly identified. Additional: None. Anatomic Pathologist sections are submitted in (A1). VB (under the direct supervision of a pathologist) The Gross Description was prepared using a voice recognition system. The report was reviewed for accuracy; however, sound-alike word errors, addition and/or deletions may occur. If there is any question about this report, please contact Client Services. ADDITIONAL NOTES: Immunohistochemical and/or in situ hybridization studies if performed in this case included appropriate positive controls that reacted as expected. This test was developed and its performance PATIENT NAME: FLYNN GALVAN PATHOLOGY DATE OF : 77 REPORT #: [id number] PHYSICIAN: JACKIE COLEMAN PCP: NELLY US DO REPORT IS CONFIDENTIAL AND NOT TO BE RELEASED WITHOUT AUTHORIZATION [facility] [address], [place] [address] Signed characteristics determined by [facility]. It has not been cleared or approved by the U.S. Food and Drug Administration. The FDA has determined that such clearance or approval is not necessary. This test is used for clinical purposes. It should not be regarded as investigational or for research. [facility] is certified under the Clinical Laboratory Improvement Amendments of 1988 (CLIA) as qualified to perform high complexity clinical laboratory testing. PERFORMING LABORATORY: Technical component was performed by [facility], [address] [place] [id number] (CLIA# [id number]). Professional interpretation was performed by [facility], [address] [address] (CLIA# [id number]). Diagnostician: Kody Rutledge MD Pathologist Electronically Signed 07/06/2023 Copies: ~ PATIENT NAME: FLYNN GALVAN PATHOLOGY DATE OF : 77 REPORT #: [id number] PHYSICIAN: JACKIE PATHOLOGY PCP: NELLY US DO REPORT IS CONFIDENTIAL AND NOT TO BE RELEASED WITHOUT AUTHORIZATION
--- NOTE | 2023-07-06 12:56 | NUR ---
SPOKE WITH MUM, DEBBIE, [facility] AGUSTÍN GARCIA TO UPDATE HER ON PT CONDITION. PTs MUM PLANS ON VISITING AGAIN TOMORROW (07/05). ALL QUESTIONED ANSWERED.
--- NOTE | 2023-07-06 14:07 | NUR ---
PT RESTING IN BED WITH EYES CLOSED, RR EVEN AND UNLABORED. NO NEEDS IDENTIFIED AT THIS TIME. CALL LIGHT IN REACH. BED ALARM ON. SIDE RAILS UP X4 FOR SAFTEY. FALL MATS IN PLACE.
--- NOTE | 2023-07-06 14:45 | NUR ---
IN TO ROUND ON PT, SECOND ASSESSMENT COMPLETE. BOWEL TONES HEARD, ABDOMEN SOFT TO PALPATION. PT APPEARS COMFORTABLE. BRUISING TO LEFT FOREARM NOTED. BED IN LOWEST POSITION, FALL MATS IN PLACE, CALL LIGHT IN REACH, NO OTHER NEEDS NOTED.
--- NOTE | 2023-07-06 14:54 | NUR ---
IN WITH CYNTHIA, SN TO ROUND ON PT. PT SEMI-FOWLERS IN BED. PT SMILES WHEN ADDRESSED. ASSESSMENT COMPLETE. BOWEL TONES HYPOACTIVE. ABD SOFT WITH PALPATION. GRIMACE NOTED WITH PALPATION TO ABD ALONG WITH PT PUSHING THIS RNs HANDS AWAY. OTHERWISE PT APPEARS COMFORTABLE. LAP SITES X5 OPEN TO AIR, NO CHANGES NOTED. EDEMA NOTED TO BILATERAL FEET. IV INFUSING WNL. NO OTHER NEEDS IDENTIFIED AT THIS TIME. CALL LIGHT IN REACH. BED ALARM ON. SIDE RAILS UP X4 FOR SAFTEY. FALL MATS IN PLACE. PT IN VIEW OF NURSES STATION.
--- NOTE | 2023-07-06 15:11 | NUR ---
IN WITH RADHA RANDOLPH TO ADMINISTER MEDICATION. PT CHEWS MEDICATIONS WITHOUT INCIDENT. PT AMBULATES TO RECLINER CHAIR WITH CUEING, CPOX SENSOR REPLACED WITH NEW SENSOR ON RIGHT RING FINGER. CHAIR ALARM ON, PT APPEARS COMFORTABLE, CALL LIGHT IN PLACE, NO OTHER NEEDS NOTED AT THIS TIME.
--- NOTE | 2023-07-06 15:11 | NUR ---
IN WITH SN CYNTHIA TO ADMINISTER MEDICATION, SEE MAR. PT TAKES CHEWABLE TABLETS WITH NO ISSUES. 2PA FROM BED TO RECLINER WITH CUEING. PT AMBULATES TO RECLINER WITH AN UNSTEADY GAIT. PT IN RECLINER. CHAIR ALARM ON. BLE ELEVATED IN RECLINER. IV INFUSING WNL. BLANKET PROVIDED. CHAIR ALARM ON, CALL LIGHT IN REACH. FALL MATS IN PLACE. PT IN VIEW OF NURSES STATION.
--- NOTE | 2023-07-06 15:50 | NUR ---
REPORT RECEIVED FROM AGUSTÍN GARCIA, ALL QUESTIONS ANSWERED. CARE ASSUMED AT THIS TIME.
--- NOTE | 2023-07-06 15:59 | NUR ---
IN WITH RADHA MCCLURE FOR 2RN SKIN ASSESSMENT. BRUISING NOTED TO PTs LEFT FOREARM. BRUISING NOTED TO LEFT RIDDLE. BRUISING NOTED AROUND LAP SITED. SCARE NOTED TO TRACHEA. PT SITTING UP IN RECLINER WATCHING TV. CHAIR ALARM ON. CALL LIGHT IN REACH. FALL MATS IN PLACE. PT IN VIEW OF NURSES STATION. NO OTHER NEEDS IDENTIFIED AT THIS TIME.
--- NOTE | 2023-07-06 16:27 | NUR ---
PT SITTING UP IN RECLINER. ABX STARTED. PT APPEARS TO BE IN NO PAIN OR DISTRESS, RESPIRATIONS EVEN AND UNLABORED, ALERT AND AWAKE, FLACC 0.
--- NOTE | 2023-07-06 19:05 | NUR ---
REPORT RECEIVED FROM KAMI GARCIA. pt RESTING IN THE BED. CALL LIGHT WITHIN REACH. BOARD UPDATED. IV ASSESSED, WNL.
--- NOTE | 2023-07-06 20:40 | NUR ---
ASSESSMENT AND VITAL SIGNS DONE. NAIDU EMPTIED. pt REPOSITIONED. LAP SITES X5 CDI. BOWEL TONE HYPOACTIVE. IV ASSESSED, WNL. CALL LIGHT WITHIN REACH. ABDOMIN SLIGHTLY DISTENDED.
--- NOTE | 2023-07-06 21:15 | NUR ---
SCHEDULED MEDICATION ADMINISTERED PER ORDER, SEE MAR. pt RESTING IN THE BED. pt REPOSITIONED. CALL LIGHT WITHIN REACH.
--- NOTE | 2023-07-06 22:37 | NUR ---
pt RESTING IN THE BED. CPOX ON. IV ABX INFUING PER ORDER, SEE MAR. NO S/SX OF OBVIOUS DISTRESS. CALL LIGHT WITHIN REACH.
--- NOTE | 2023-07-06 23:58 | NUR ---
pt RESTING IN THE BED WITH EYES CLOSED. RR EVEN AND UNLABORED. CALL LIGHT WITHIN REACH. NO OTHER NEEDS AT THIS TIME.
[2023-07-07] VITALS (8 sets, daily range): BP systolic 110–127; BP diastolic 55–68
--- NOTE | 2023-07-07 01:53 | NUR ---
pt RESTING IN THE BED WITH EYES CLOSED. RR EVEN AND UNLABORED. CALL LIGHT WITHIN REACH.
--- NOTE | 2023-07-07 04:00 | NUR ---
IV ABX INFUSING PER ORDER, SEE MAR. pt RESTING IN THE BED WITH EYES CLOSED. RR EVEN AND UNLABORED. CALL LIGHT WITHIN REACH.
--- NOTE | 2023-07-07 06:27 | NUR ---
ASSESSMENT AND VITAL SIGNS DONE. ACTIVE BOWEL TONE. LAP SITES X5 CDI. ORAL CARE DONE. SCHEDULED MEDS ADMINISTERED PER ORDER, SEE JASWANT. EVANGELISTA EMPTIED. CALL LIGHT WITHIN REACH. NO OTHER NEEDS AT THIS TIME.
--- NOTE | 2023-07-07 07:10 | NUR ---
RECEIVED REPORT FROM RADHA TORRES. PT AWAKE IN BED. LAP SITES SEEN BY THIS RN AND RADHA TORRES. ROLL UP GUIDER OPERATOR NURSE STATES NO CHANGES. CALL LIGHT WITHIN REACH, CURTAIN AND DOOR OPEN D/T PT BEING NON-VERBAL, ROOM NEAR NURSES STATION.
--- NOTE | 2023-07-07 08:05 | NUR ---
BREAKFAST BROUGHT TO PT ROOM. THIS RN BEGINS ASSISTING PT WITH EATING, PT TOLERATING SOLID FOODS PO. UNIT REACTOR OPERATOR TO BEDSIDE TO ASSIST BOOSTING PT IN BED, UNIT REACTOR OPERATOR BEGINS ASSISTING PT TO EAT.
--- NOTE | 2023-07-07 08:30 | NUR ---
FIRE PREVENTION BUREAU CAPTAIN TELLS THIS RN THAT PT TOLERATED PO REGULAR DIET (NO LIQUIDS PO PER ORDER) WELL, OCCASIONAL COUGHING WHILE EATING, ABLE TO CLEAR INDEPENDENTLY.
--- NOTE | 2023-07-07 08:58 | NUR ---
OR NURSE ARRIVES, TAKES PT TO OR. PT DENIES PAIN OR NAUSEA AT THIS TIME. ROCEPHIN AND FLAGYL REMOVED FROM PIXUS BY THIS RN AND SENT WITH OR NURSE PER OR NURSE REQUEST.
[2023-07-07] MEDS ORDERED: LANSOPRAZOLE 30 MG TABDIS PO SCH (09:00)
--- NOTE | 2023-07-07 09:24 | NUR ---
PT LYING IN BED, AWAKENS TO THIS RN ENTERING ROOM. PT TAKES PO DISSOLVING MEDICATION WELL. PT PUSHES THIS RN'S HANDS AWAY WHILE GIVING LOVENOX SHOT WELL DURING ASSESSMENT. PT NOT GRIMACING OR FIDGETING AT THIS TIME, IS NOT MOANING OR SHOWING ANY OTHER SIGNS OF PAIN AT THIS TIME. PT UNABLE TO VERBALLY ANSWER QUESTIONS AT BASELINE. SCDs IN PLACE, SMALL AMOUNT OF GENERALIZED EDEMA IN BILATERAL FEET REMAINS. ABDOMEN IS SOFT, TENDER TO PALPATION PT PUSHES RN HANDS AWAY WHEN PALPATING. ACTIVE BOWEL TONES IN ALL QUADRANTS, PT UNABLE TO SAY IF NAUSEAS D/T BEING NON-VERBAL, NO SIGNS OF NAUSEA, NO VOMITTING. PEG TUBE REMAINS IN PLACE, CLAMPED. 5 LAP SITES CONTINUE TO BE OPEN TO AIR, MIDLINE LAP SITE REDNESS REMAINS, HAS NOT INCREASED. NO NEW DRAINAGE PRESENT. PT CURTAIN OPEN WITH ROOM NEXT TO NURSES STATION D/T PT UNABLE TO USE CALL LIGHT AND BEING NON-VERBAL FOR SAFETY.
--- NOTE | 2023-07-07 11:50 | NUR ---
PT UP TO CHAIR WITH 1PA AND VERBAL CUEING. NAIDU CATHETER DC'D PER ORDER. DEPENDS IN PLACE. MOTHER AT THE BEDSIDE. CALL LIGHT WITHIN REACH.
--- NOTE | 2023-07-07 14:12 | NUR ---
PT REMAINS UP TO THE CHAIR, MOTHER AT THE BEDSIDE. PT MOTHER STATES NO NEEDS AT THIS TIME. PT NOT GRIMACING, MOANING, FIDGETING, OR SHOWING ANY OTHER SIGN OF PAIN AT THIS TIME. YAN LIGHT WITHIN REACH.
--- NOTE | 2023-07-07 16:18 | NUR ---
PT LYING IN BED WATCHING TV. DEPENDS DRY AT THIS TIME. ROOM CURTAIN OPEN NEAR NURSES STATION FOR SAFETY D/T PT NOT BEING ABLE TO USE CALL LIGHT AND BEING NON-VERBAL.
--- NOTE | 2023-07-07 18:20 | NUR ---
DEPENDS SOILED WITH URINE, DEPENDS CHANGED, NEW DEPENDS IN PLACE, SILVIA CARE COMPLETED. PT BOOSTED IN BED.
--- NOTE | 2023-07-07 19:43 | NUR ---
RECEIVED REPORT FROM DAY SHIFT RN. PATIENT IS RESTING IN BED. PATIENTS IV INFUSING PER ORDER. PATIENT APPEARS COMFORTABLE. PATIENTS BED ALARM ON FOR SAFETY.
--- NOTE | 2023-07-07 21:43 | NUR ---
PATIENT ASSESMENT COMPLETED. PATIENTS VITALS TAKEN AND RECORDED. PATIENT INCONT OF URINE. SILVIA CARE COMPLETED AND A NEW ATTEND IS ON PLACE. PATIENTS INTAKE AND OUTPUT RECORDED. PATIENTS IV INFUSING PER ORDER. PATIENTS PM MEDS GIVEN PER ORDER. PATIENTS IV ABX INFUSING PER ORDER. PATIENT HAS X4 LAP SITES C/D/I, OPEN TO AIR AND WELL APPROXIMATED. PATIENTS MID ABD INCISION IS C//D/I, OPEN TO AIR, WELL APPROXIMATED AND IS NOTED TO BE SLIGHTLY RED. PATIENT APPEARS TO BE COMFORTABLE. PATIENT REPOSITIONED IN BED. NO FURTHER NEEDS NOTED. CALL LIGHT IN REACH. BED ALARM ON FOR SAFETY.
--- NOTE | 2023-07-07 22:11 | NUR ---
PATIENT IS RESTING IN BED WATCHING TV. PATIENTS IV INFUSING PER ORDER. NO NEEDS NOTED. CALL LIGHT IN REACH. BED ALARM ON FOR SAFETY.
--- NOTE | 2023-07-08 00:13 | NUR ---
PATIENT IS RESTING IN BED WITH EYES CLOSED, RR 15. CALL LIGHT IN REACH. IV INFUSING PER ORDER. BED ALARM ON FOR SAFETY.
--- NOTE | 2023-07-08 02:32 | NUR ---
PATIENT RESTING IN BED WITH EYES CLOSED, RR 15. PATIENT NOTED TO BE INCONT OF URINE. PATIENTS ATTEND CHANGED AND SILVIA CARE COMPLETED. PATIENT REPOSITIONED IN BED. PATIENTS IV INFUSING PER ORDER. NO FURTHER NEEDS NOTED. CALL LIGHT IN REACH. BED ALARM ON FOR SAFETY.
--- NOTE | 2023-07-08 04:03 | NUR ---
PATIENT IS RESTING IN BED. PATIENTS SCHEDULED IV ABX INFUSING PER ORDER. NO FURTHER NEEDS NOTED. CALL LIGHT IN REACH. BED ALARM ON FOR SAFETY.
[2023-07-08 06:25] VITALS: BP 100/63
--- NOTE | 2023-07-08 06:39 | NUR ---
PATIENT INCONT OF URINE. SILVIA CARE COMPLETED AND NEW ATTEND PLACED ON PATIENT. PATIENTS INTAKE AND OUTPUT RECORDED. PATIENTS VITALS TAKEN AND RECORDED. PATIENT REPOSITIONED IN BED. PATIENTS AM MEDS GIVEN PER ORDER. PATIENTS IV INFUSING PER ORDER. PATIENT APPEARS COMFORTABLE. PATIENTS CALL LIGHT IN REACH. BED ALARM ON FOR SAFETY.
[2023-07-08 06:41] VITALS: BP 100/63
--- NOTE | 2023-07-08 07:27 | NUR ---
RECEIVED REPORT FROM RADHA MARTIN. PT LYING IN BED RESTING WITH EYES CLOSED, RESPIRATIONS EVEN AND UNLABORED. CURTAIN OPEN TO ROOM NEAR NURSES STATION FOR SAFETY D/T PT UNABLE TO USE CALL LIGHT. ASSUMING CARE OF PT.
--- NOTE | 2023-07-08 07:57 | NUR ---
Patient was observed sleeping. Board has been updated and call light has been placed within reach.
[2023-07-08 09:24] VITALS: BP 97/73
[2023-07-08 09:58] VITALS: BP 97/73
--- NOTE | 2023-07-08 10:15 | NUR ---
PT DEPENDS CHANGED, SILVIA CARE COMPLETED. PT KICKS AND WILL NOT ALLOW SCDs TO BE PLACED. ABDOMEN SOFT, PT PUSHES HANDS AWAY WHEN PALPATING, SHOWS NO SIGNS OF PAIN WHEN ABDOMEN IS NOT TOUCHED. PEG TUBE REMAINS CLAMPED PER ORDER. PT REMAINS INCONTINENT, NEW CHUX PLACED WITH NEW DEPENDS. CURTAIN TO ROOM BY NURSES STATION OPEN FOR SAFETY D/T PT BEING NON-VERBAL AND UNABLE TO USE CALL LIGHT.
--- NOTE | 2023-07-08 11:47 | NUR ---
THIS RN CALLS PT'S MOTHER TO NOTIFY ABOUT PT DC ORDER. PT'S MOM VERBALIZES UNDERSTANDING, STATES SHE WILL COME TO HOSPITAL TO INDUSTRIAL HEALTH AND SAFETY PROFESSOR PT. PT MOTHER STATES ALL QUESTIONS HAVE BEEN ANSWERED.
--- NOTE | 2023-07-08 12:50 | NUR ---
THIS RN FEEDING PT LUNCH, PT ABLE TO EAT SOLID REGULAR DIET LUNCH WELL WITH ASSISTANCE. STRADDLE BUGGY OPERATOR ARRIVES TO COMPLETE FEEDING LUNCH TO PT.
[2023-07-08 13:24] VITALS: BP 115/61
--- NOTE | 2023-07-08 14:23 | NUR ---
THIS RN AND RESEARCH DIRECTOR DRESS PT IN OWN CLOTHES. PT LEAVING WITH ALL PERSONAL BELONGINGS. IV DC'D WNL. PT MOTHER ARRIVES TO TAKE HER HOME. PT TRANSFERS TO WHEELCHAIR WITH MINIMAL ASSISTANCE AND VERBAL CUES. PT EDUCATION AND DC PACKET GIVEN TO PT AND MOTHER, MOTHER STATES ALL QUESTIONS HAVE BEEN ANSWERED. PT WHEELED TO FRONT OF BUILDING BY NURSING PERSONEL.
[2023-07-08 14:31] VITALS: BP 115/61
--- NOTE | 2023-07-09 06:53 | DS ---
[facility] [address] [place], [place] [address] Signed ADMISSION DATE: 07/04/2023 DISCHARGE DATE: 07/08/2023 FINAL DIAGNOSES: 1. Acute necrotizing cholecystitis with cholelithiasis. 2. 1.5 cm left adrenal nodule. PROCEDURES: 1. Laparoscopic cholecystectomy without intraoperative cholangiogram. 2. CT scan of abdomen and pelvis. 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 She [place] She had a tracheostomy and even had what sounds like subdural hematoma drain. Eventually, she had a ACCREDITATION SPECIALIST shunt, but it is nonfunctioning currently. She has a G-tube for liquids only. She can actually chew and swallow solids. Mom had notice that she was starting to vomit and did not look good. She brought her to our emergency room for evaluation. Her heart rate was up when the white blood cell count was over 20,000. Her urine was very gladys colored with a specific gravity greater than 1.030 and greater than 1000 glucose. Liver function tests were not necessarily terrible. She ended up with a CT scan of abdomen and pelvis and she has a moderate distended and thickened gallbladder without any obvious stones. The common bile duct was unremarkable. She had pericholecystic fluid. She also had a 1.5 cm left adrenal nodule that probably needs a followup CT or MRI outpatient. I had been asked to admit her as a general surgeon on-call. She had started initially with Rocephin and Flagyl. HOSPITAL COURSE: We admitted Flynn as above and hydrated her overnight and switched her to cefepime and Flagyl in the morning. I had met with Flynn and her mother and we had a long discussion with respect to the above. I also brought a brochure on the gallbladder, which I circled the sections relevant to them. We took Flynn to the operating room later that day for rather prolonged and difficult laparoscopic cholecystectomy without intraoperative cholangiogram. It took 2 hours and two registered nurses scrubbed and complete the case. We took pictures throughout for photodocumentation and they are quite impressive. She had a tremendous amount of fluid in the tissues around the gallbladder in the abdomen. She overall did very well intraop and postop. It has taken her a few days of additional IV fluids to get her urine output up and clear and then slowed IV fluids down and let the bowel to recover. She is now back on a regular diet. We have used her IV for the fluid intake rather than the G-tube at this point. We have left her on cefepime and Flagyl throughout the hospital stay. Each day her abdomen got Electronically Signed By: RODRÍGUEZ MUNOZ MD 07/09/23 0653 PATIENT NAME: FLYNN GALVAN DISCHARGE SUMMARY DATE OF : 77 REPORT #: [id number] PHYSICIAN: RODRÍGUEZ MUNOZ MD PCP: OLU US DO REPORT IS CONFIDENTIAL AND NOT TO BE RELEASED WITHOUT AUTHORIZATION [address] [address] Signed slowly better and she has been in negative fluid balance now for several days. At this point, she no longer grabbed my hand when I touch her abdomen. All the incisions are healing well without any local signs or symptoms of infection. Her abdomen is back to being flat, soft and nontender. We have spoken with Flynn's mom several times including this morning and we plan on letting her go back home today with her mother and the family. DISCHARGE PLANS AND MEDICATIONS: Flynn is going to be discharged home with her mom and her family today. She will not needed any narcotics at this point. She can use Tylenol, ibuprofen or Aleve as needed for pain. She will continue her usual regular diet at home along with the fluid boluses through her G-tube. She is welcome to ambulate as she has been doing here in the hospital. She can shower and bathe as usual. She will leave the incisions open to air. We are going to have her back in the office in about a week or two for followup. She is welcome to use all her usual medications. Rodríguez Munoz MD ALB/MODL /[id number] cc: MD Olu Ingram DO Copies: RODRÍGUEZ MUNOZ MD, ARIAN DO ~ Electronically Signed By: RODRÍGUEZ MUNOZ MD 07/09/23 0653 PATIENT NAME: FLYNN GALVAN DISCHARGE SUMMARY DATE OF : 77 REPORT #: [id number] PHYSICIAN: RODRÍGUEZ MUNOZ MD PCP: OLU US DO REPORT IS CONFIDENTIAL AND NOT TO BE RELEASED WITHOUT AUTHORIZATION
== END 2023-07-08 14:23 | disposition home or self-care (01) | DRG 419 ==
LOC: ED 09:25 → MS 09:27
PROVIDERS: Family Medicine; ADMIT Colon & Rectal Surgery; ATTEND Colon & Rectal Surgery
PROC: 0FT44ZZ Resection of Gallbladder, Percutaneous Endoscopic Approach (ICD-10-PCS; principal; 2023-07-03 10:30)
DX: K80.00 Calculus of gallbladder with acute cholecystitis without obstruction (principal); E27.9 Disorder of adrenal gland, unspecified; R73.9 Hyperglycemia, unspecified; E83.42 Hypomagnesemia; E83.39 Other disorders of phosphorus metabolism; R74.8 Abnormal levels of other serum enzymes; E86.0 Dehydration; E87.6 Hypokalemia; D69.6 Thrombocytopenia, unspecified; K82.A1 Gangrene of gallbladder in cholecystitis; Z87.820 Personal history of traumatic brain injury; Z98.890 Other specified postprocedural states; Z88.8 Allergy status to other drugs, medicaments and biological substances; Z93.1 Gastrostomy status; Z98.2 Presence of cerebrospinal fluid drainage device; Z79.899 Other long term (current) drug therapy
CPT/HCPCS: 00790; 36415; 51701; 74177; 80053; 81001; 83036; 83690; 83735; 84100; 84703; 85025; 96365; 96372; 96375; 96376; 97162; 97166; 97530; 99285-25; C9113; G0378; J0131; J0330; J0692; J0696; J1100; J1170; J1650; J1885; J2001; J2250; J2405; J2704; J3010; J3475; J3490; J7030; J7060; J7121; Q9967

== ENCOUNTER 2024-08-26 09:30 | Day surgery (SDC) | payer MEDICARE, OTHER ==
[~2024-08-26] VITALS: Ht 162.6 cm; Wt 72.6 kg
[~2024-08-26 09:30] MED LIST changes: +CALCIUM + D SO1 EACH PO; +IBLOOD GLUCOSE TEST STRIP 1 EA TEST VI PRN; +LACTATED RINGER'S 1,000 ML IV SCH; +LIDOCAINE HCL 1% 5 ML SDV INJ ONE; +VITAMIN D3125 MC3 PO
[2024-08-26] MEDS ORDERED: dexmedeTOMIDine HCl 200 MCG/2 ML VIAL ONE (10:14)
[2024-08-26] MEDS ORDERED: SODIUM CHLORIDE 0.9% 100 ML IV ONE (10:18)
[2024-08-26 10:21] LABS: BASOPHILS 1.2 % (0.1-1.2); BASOPHILS, ABSOLUTE 0.07 K/uL (0.01-0.08); EOSINOPHILS 3.8 % (0.7-5.8); EOSINOPHILS, ABSOLUTE 0.22 K/uL (0.04-0.36); HEMATOCRIT 42.5 % (34.1-44.9); LYMPHOCYTES 31.9 % (19.3-51.7); LYMPHOCYTES, ABSOLUTE 1.84 K/uL (1.18-3.74); MCH 29.3 PG (25.6-32.2); MCHC 32.9 g/dL (32.2-35.5); MCV 88.9 fL (79.4-94.8); MONOCYTES 8.3 % (4.7-12.5); MONOCYTES, ABSOLUTE 0.48 K/uL (0.24-0.86); NEUTROPHILS 54.5 % (34.0-71.1); NEUTROPHILS, ABSOLUTE 3.13 K/uL (1.56-6.13); PLATELET COUNT 299 K/uL (182-369); RBC 4.78 M/uL (3.93-5.22)
[2024-08-26 10:47] LABS: ALBUMIN 3.7 g/dL (3.4-5.0); ALKALINE PHOSPHATASE 65 U/L (46-116); ALT (SGPT) 27 U/L (14-59); ANION GAP 10.7 (7-21); AST (SGOT) 10 U/L (15-37); BILIRUBIN, TOTAL 0.2 mg/dL (0.2-1.0); BUN/CREATININE RATIO 18.57 (6.0-28.6); CALCIUM 8.4 mg/dL (8.5-10.1); CARBON DIOXIDE 29 mmol/L (21-32); CHLORIDE 105 mmol/L (98-107); CHOLESTEROL 233 mg/dL (<200); CHOLESTEROL/HDL RATIO 2.7; GLOMERULAR FILTRATION RATE,EST 107 mL/min (>60); HDL CHOLESTEROL 87 (40-60); LDL CHOLESTEROL 138 mg/dL (< 129); POTASSIUM 3.7 mmol/L (3.5-5.1); PROTEIN, TOTAL 7.4 g/dL (6.4-8.2); TRIGLYCERIDES 42 ng/dL (<150); TSH, 3RD GENERATION 2.554 uIU/mL (0.358-3.740); UREA NITROGEN 13 mg/dL (7-18); VLDL CHOLESTEROL 8
[2024-08-26] MEDS ORDERED: GLYCOPYRROLATE 1 MG/5 ML MDV ONE (10:47)
[2024-08-26 10:53] VITALS: BP 92/46
[2024-08-26] MEDS ORDERED: ePHEDrine sulfate 50 MG/ML AMP ONE (10:53)
[2024-08-26 10:57] LABS: CARBAMAZEPINE (TEGRETOL) 8.6 ug/mL (4.0-12.0)
[2024-08-26] MEDS ORDERED: propofoL 200 MG/20 ML VIAL ONE (11:19)
[2024-08-26 11:25] VITALS: BP 121/58
--- NOTE | 2024-08-26 11:37 | NUR ---
08/26/24 1137 Sheets,Libby [id number] PT ARRIVED TO PACU WITH JIG HAND, CHIN LIFT USED OFF AND ON TO MAINTAIN AIRWAY. TO REMAINS NONAROUSABLE AND LEFT TO CT WITH JIG HAND. VEENAS.
[2024-08-26] MEDS ORDERED: NALOXONE HCL 0.4 MG SYR IV PRN (13:00)
[2024-08-26] MEDS ORDERED: ondansetron HCL 4 MG/2 ML VIAL IV PRN (13:00)
[2024-08-26 13:40] VITALS: BP 83/45
[2024-08-26] MEDS ORDERED: ePHEDrine sulfate 50 MG/ML AMP IM ONE (13:45)
[2024-08-26] MEDS ORDERED: ePHEDrine sulfate 50 MG/ML AMP IV ONE (13:45)
--- NOTE | 2024-08-26 14:21 | NUR ---
1330: PATIENT BACK IN DAY SURGERY ROOM FROM PACU. PATIENT AWAKE AND ALERT. IV SITE WNL. IV SALINE LOCKED. 1345: VS CHECKED. IV DC'D WNL. TIP INTACT. DRESSING APPLIED. ASSISTANCE FROM 2 OTHER RNs REQUIRED TO REMOVE IV. 1350: ASSISTED MOM TO GET PATIENT DRESSED AND TRANSFERRED BACK TO PERSONAL WHEELCHAIR. 1358: DISCHARGE INSTRUCTIONS GIVEN TO MOTHER. PATIENT DISCHARGED TO HOME VIA PERSONAL WHEELCHAIR WITH MOTHER.
[2024-08-27 12:44] LABS: VITAMIN D 25 OH 9 ng/mL (30-80)
--- NOTE | 2024-08-27 13:13 | OR ---
[facility] [address] [place], [place] [address] Signed DATE OF OPERATION: 08/26/2024 SURGEON: Frances Posadas MD PREOPERATIVE DIAGNOSES: 1. Distant history of traumatic brain injury 1992. 2. G-tube (4.2 cm gastrostomy button). 3. Dependency for oral feeding on gastrostomy tube. POSTOPERATIVE DIAGNOSES: 1. Distant history of traumatic brain injury 1992. 2. G-tube (4.2 cm gastrostomy button). 3. Dependency for oral feeding on gastrostomy tube. PROCEDURE: 1. Exam under anesthesia. 2. Explantation of percutaneous endoscopic gastrostomy button (4.2 cm). 3. Reinsertion of new percutaneous endoscopic gastrostomy button 4.2 cm. ANESTHESIA: Intravenous sedation, Caren Haney CRNA. INDICATIONS: This 49-year-old woman remains in a minimal functional state, having suffered traumatic brain injury in 1992 in her teen years. She is episodically required change of her gastrostomy button device, for which she is dependent for her nutritional support. My last recorded change of the G-tube was January 02, 2023. A 4.2 cm endo dive stoma button (PEG button device) was implanted at that time and has been functioning well. Based on manufacture's recommendations and so forth. change of the button at this point is appropriate. The risk of bleeding, infection, perforation, and other unforeseen complications was reviewed with her mother. She understands and wished to proceed. Additionally, the patient is noted to have a less than 2 cm adrenal nodule based on abdominal CT scan performed July 01 one year ago. Gallbladder wall thickening and pericholecystic fluid was noted at that time, for which she underwent cholecystectomy by Dr. Jose Alfredo Olivarez. A 1.5 cm left adrenal nodule with inconclusive internal attenuation was noted. Additionally noted was a disrupted ventriculoperitoneal shunt tubing with retained loop tubing in the pelvis. Electronically Signed By: FRANCES POSADAS MD 08/27/24 1313 PATIENT NAME: FLYNN GALVAN OPERATIVE REPORT DATE OF : 77 REPORT #: [id number] PHYSICIAN: FRANCES POSADAS MD PCP: OLU US DO REPORT IS CONFIDENTIAL AND NOT TO BE RELEASED WITHOUT AUTHORIZATION [facility] [address] [place] [id number] Signed On that basis, Dr. Us asked for CT scan to be performed subsequent to PEG button replacement as she will be under sedation anyway. I have not been involved in her adrenal nodule evaluation and mentioned that only to document that the CT scan is done on that basis at this time. FINDINGS: The device was explanted without complication with only minimal amount of blood. It appeared to be intact. The new device was similarly 4.2 cm in length and inserted without difficulty and appears to flush well without any sign of complication. DESCRIPTION OF PROCEDURE: In the operating room with intravenous sedation fully monitored by the legal librarian, the previous PEG button tube was identified and had enough mobility that the similar size was deemed appropriate. Using the probe device, a PEG button was carefully examined and the mid center point put on stretch allowing for explantation of the device without problem. It was examined and found to be intact without sign of occlusion or other problem. A brand-new Bard type 4.2 cm button device was elongated with the probe device, lubricated and inserted into the tract without problem. It's deployment was without any difficulty. The device was flushed with a Slip-Tip syringe of saline showing no sign of problem. Cap was reapplied. She was ultimately taken to recovery room in good condition having suffered no known complication. MD ELLI Tse/ELISEOL /[id number] cc: Olu Us DO Copies: OLU US DO ~ Electronically Signed By: FRANCES POSADAS MD 08/27/24 1313 PATIENT NAME: FLYNN GALVAN OPERATIVE REPORT DATE OF : 77 REPORT #: [id number] PHYSICIAN: FRANCES POSADAS MD PCP: OLU US DO REPORT IS CONFIDENTIAL AND NOT TO BE RELEASED WITHOUT AUTHORIZATION
== END 2024-08-26 13:58 | disposition home or self-care (01) ==
LOC: DS 09:30
PROVIDERS: Internal Medicine; ATTEND Surgery
PROC: 0D20XUZ Change Feeding Device in Upper Intestinal Tract, External Approach (ICD-10-PCS; principal; 2024-08-26 12:00)
DX: K94.23 Gastrostomy malfunction (principal); E66.3 Overweight; Z87.820 Personal history of traumatic brain injury; Z68.39 Body mass index [BMI] 39.0-39.9, adult
CPT/HCPCS: 00700; 36415; 80053; 80061; 80156; 82306; 83036; 84443; 84703; 85025; J2704; J7121